=== PATIENT | female | born 1970 | race Caucasian/White ===

== ENCOUNTER 2017-06-23 10:43 | Emergency (ER) | payer BC ==
[2017-06-23] MEDS ORDERED: LISINOPRIL 10 MG TAB PO STA (11:42)
[2017-06-23] MEDS ORDERED: hydrALAZINE HCL 20 MG/ML 1 ML VIAL IM STA (12:31)
--- NOTE | 2017-06-23 12:31 | ED ---
General Adult HPI - General Chief complaint: Extremity Injury, Lower Stated complaint: fall Time Seen by Provider: 06/23/17 11:04 Source: patient Mode of arrival: ambulatory Limitations: no limitations - History of Present Illness Initial comments: She injured her right foot" a few weeks ago him pain is still there now she is concerned about the pain also blood pressures fine she was used to be on medication lisinopril plus hydrochlorothiazide for that and patient was doing well she discontinued the medication blood pressure on arrival was quite high at greater than 180 systolic and then it went over the 190 systolic. She took some Motrin for the foot pain this morning she do not want any other medications for At this point and she denies any headaches no blurred vision no chest pain no shortness of breath no confusion no symptoms of TIA or CVA or - Related Data Home Medications Medication Instructions Recorded Confirmed Frovatriptan Succinate [Frova] 2.5 mg PO BID PRN 08/03/16 06/23/17 DULoxetine HCL [Cymbalta] 60 mg PO DAILY 06/23/17 06/23/17 L.acidoph,Paracasei, B.lactis 1 cap PO DAILY 06/23/17 06/23/17 [Probiotic] Multivitamins, Thera [Multivitamin 1 tab PO DAILY 06/23/17 06/23/17 (formulary)] Previous Rx's Medication Instructions Recorded Lisinopril-Hctz 10-12.5 mg 1 tab PO DAILY #30 tab 06/23/17 [Zestoretic 10-12.5] Allergies Allergy/AdvReac Type Severity Reaction Status Date / Time No Known Allergies Allergy Verified 06/23/17 11:28 Review of Systems ROS Statement: Those systems with pertinent positive or pertinent negative responses have been documented in the HPI. ROS Other: All systems not noted in ROS Statement are negative. Past Medical History Past Medical History: Hypertension, Osteoarthritis (OA) Additional Past Medical History / Comment(s): migraines History of Any Multi-Drug Resistant Organisms: None Reported Past Surgical History: Cholecystectomy, Orthopedic Surgery, Tubal Ligation Past Psychological History: No Psychological Hx Reported Smoking Status: Never smoker Past Alcohol Use History: Occasional Past Drug Use History: None Reported General Exam - General Exam Comments Initial Comments: General: The patient is awake and alert, in no distress, and does not appear acutely ill. Skin: Skin is warm and dry and no rashes or lesions are noted. Eye: Pupils are equal, round and reactive to light, extra-ocular movements are intact; there is normal conjunctiva bilaterally. Ears, nose, mouth and throat: There are moist mucous membranes and no oral lesions. Neck: The neck is supple, there is no tenderness or JVD. Cardiovascular: There is a regular rate and rhythm. No murmur, rub or gallop is appreciated. Respiratory: To auscultation bilateral, no wheezing no rhonchi no distress respiratory jaquez noticed Gastrointestinal: Soft, non-distended, non-tender abdomen without masses or organomegaly noted. There is no rebound or guarding present. Bowel sounds are unremarkable. Back: There is no tenderness to palpation in the midline. There is no obvious deformity. Musculoskeletal: She is tender at the distal tip of the fibula and inferior to the lateral malleolus, noticed some swelling as well she slightly tender over the proximal fifth metatarsal as well. Range of motion is within normal range no neurovascular compromise noticed Neurological: CN II-XII intact, Cranial nerves III through XII are intact. There are no obvious motor or sensory deficits. Coordination appears grossly intact. Speech is normal. Psychiatric: Cooperative, appropriate mood & affect, normal judgment. Limitations: no limitations Course Vital Signs 06/23/17 06/23/17 06/23/17 10:54 11:35 12:19 Temperature 100.0 F H Pulse Rate 105 H 90 94 Respiratory 18 17 18 Rate Blood Pressure 199/109 189/124 193/110 O2 Sat by Pulse 100 99 100 Oximetry 06/23/17 12:53 Temperature Pulse Rate 94 Respiratory 18 Rate Blood Pressure 187/116 O2 Sat by Pulse 100 Oximetry Her blood pressure was continuously monitored for over an hour unfortunately: Preet initially we gave her lisinopril which was all medication was not quite effective than we have and hydralazine 20 mg intramuscular warm continue to monitor her still her blood pressures normalized She was reviewed, fracture looks normal and she has ongoing pain for about a month now she probably will need a bone scan as outpatient for her family doctor to make sure the dermis any stress fracture or MRI to rule out any soft tissue injury like ligamental injury, this was discussed with the patient she presented. And she was advised to monitor her blood pressure once daily since her blood pressure systolic was almost 100 and ER and see her family doctor with a blood pressure log For days. I will give her prescription for lisinopril this point she was on prior to discontinuing her months Disposition Clinical Impression: Hypertension, Foot contusion Disposition: HOME SELF-CARE Instructions: Foot Contusion (ED) Prescriptions: Lisinopril-Hctz 10-12.5 mg [Zestoretic 10-12.5] 1 tab PO DAILY #30 tab Referrals: Guadalupe Caceres MD [Primary Care Provider] - 1-2 days
--- NOTE | 2017-06-23 12:53 | XR ---
EXAMINATION TYPE: XR foot complete RT DATE OF EXAM: 06/23/2017 COMPARISON: NONE HISTORY: Pain TECHNIQUE: Three views are submitted. FINDINGS: The osseous structures are intact and nephropathy first MTP joint. Tiny plantar calcaneal spur. Ther e is no acute fracture or dislocation. IMPRESSION: 1. No acute fracture or dislocation. If symptoms persist, follow-up exam in 7 to 10 days could be ob tained.
[2017-06-23 13:06] VITALS: BP 179/100; PULSE 88; RESP 16
[2017-06-23 13:12] VITALS: TEMP 97.9
== END 2017-06-23 13:12 | disposition home or self-care (01) ==
LOC: EC 10:43
DX: S90.31XA Contusion of right foot, initial encounter (principal); I10 Essential (primary) hypertension; Z79.899 Other long term (current) drug therapy; W19.XXXA Unspecified fall, initial encounter
CPT/HCPCS: 73630; 99283; 96372; J0360

== ENCOUNTER → 2017-08-14 | Outpatient (CLI) | payer BC ==
[2017-08-14 08:10] LABS: Cholesterol 210 mg/dL (<200); HDL Cholesterol 64 mg/dL (40-60)
== END | disposition home or self-care (01) ==
LOC: LABWHC1 07:26
PROVIDERS: ATTEND Internal Medicine
DX: Z13.220 Encounter for screening for lipoid disorders (principal)
CPT/HCPCS: 36415; 80061

== ENCOUNTER 2018-11-02 08:53 | Emergency (ER) | payer BC ==
[2018-11-02] MEDS ORDERED: SODIUM CHLORIDE 0.9% 500 ML 500 ML IV STA (09:24)
[2018-11-02] MEDS ORDERED: KETOROLAC 60 MG/2 ML VIAL IVP STA (09:24)
--- NOTE | 2018-11-02 09:28 | ED ---
General Adult HPI - General Chief complaint: Arrhythmia/Palpitations Stated complaint: Palpitations Time Seen by Provider: 11/02/18 08:55 Source: patient, RN notes reviewed Mode of arrival: wheelchair Limitations: no limitations - History of Present Illness Initial comments: This is a 48-year-old female who presents to the emergency department complaining of left sided sharp chest pain which is reproducible just above her left breast. Patient states this started last night. Patient also states felt that she's had palpitations but she believes that's her anxiety because she's had this before. Patient states the chest pain is reproducible. Patient states over the weekend she had a migraine was vomiting and could've hurt her chest at that time but doesn't recall any specific event that caused her the pain. Patient states she has no pressure sensation. Patient denies being short of breath or having difficulty breathing. Patient is a diaphoretic episode. Patient denies any nausea or vomiting. Patient denies abdominal pain patient denies any calf tenderness or leg swelling. Patient states she has had recent some right-sided rib pain but that is very subtle and not reproducible palpation. Patient denies any recent fever chills or cough. Patient denies any smoking. Patient states recently she's been diagnosed with rheumatoid arthritis. Patient states that this pain is typical of her rheumatoid arthritis and could've been exacerbated by her vomiting this . - Related Data Home Medications Medication Instructions Recorded Confirmed ALPRAZolam [Xanax] 0.25 mg PO BID PRN 11/02/18 11/02/18 ALPRAZolam [Xanax] 0.5 mg PO HS PRN 11/02/18 11/02/18 Etanercept [Enbrel] 50 mg SQ TU 11/02/18 11/02/18 Gabapentin [Neurontin] 200 mg PO TID 11/02/18 11/02/18 Suvorexant [Belsomra] 20 mg PO HS PRN 11/02/18 11/02/18 Previous Rx's Medication Instructions Recorded Lisinopril [Prinivil] 10 mg PO DAILY #10 tab 11/02/18 Allergies Allergy/AdvReac Type Severity Reaction Status Date / Time No Known Allergies Allergy Verified 11/02/18 09:16 Review of Systems ROS Statement: Those systems with pertinent positive or pertinent negative responses have been documented in the HPI. ROS Other: All systems not noted in ROS Statement are negative. Past Medical History Past Medical History: Hypertension, Osteoarthritis (OA) Additional Past Medical History / Comment(s): migraines History of Any Multi-Drug Resistant Organisms: None Reported Past Surgical History: Cholecystectomy, Orthopedic Surgery, Tubal Ligation Additional Past Surgical History / Comment(s): carpel tunnel Past Psychological History: Anxiety Smoking Status: Never smoker Past Alcohol Use History: Occasional Past Drug Use History: None Reported General Exam - General Exam Comments Initial Comments: GENERAL: Patient is well-developed and well-nourished. Patient is nontoxic and well- hydrated and is in mild distress. ENT: Neck is soft and supple. No significant lymphadenopathy is noted. Oropharynx is clear. Moist mucous membranes. Neck has full range of motion without eliciting any pain. EYES: The sclera were anicteric and conjunctiva were pink and moist. Extraocular movements were intact and pupils were equal round and reactive to light. Eyelids were unremarkable. PULMONARY: Unlabored respirations. Good breath sounds bilaterally. No audible rales rhonchi or wheezing was noted. CARDIOVASCULAR: There is a regular rate and rhythm without any murmurs gallops or rubs. Patient 's chest pain is reproducible on palpation just above the left breast. No masses or rashes are noted. There is no erythematous area. ABDOMEN: Soft and nontender with normal bowel sounds. No palpable organomegaly was noted. There is no palpable pulsatile mass. SKIN: Skin is clear with no lesions or rashes and otherwise unremarkable. NEUROLOGIC: Patient is alert and oriented x3. Cranial nerves II through XII are grossly intact. Motor and sensory are also intact. Normal speech, volume and content. Symmetrical smile. MUSCULOSKELETAL: Normal extremities with adequate strength and full range of motion. No lower extremity swelling or edema. No calf tenderness. LYMPHATICS: No significant lymphadenopathy is noted PSYCHIATRIC: Normal psychiatric evaluation. Limitations: no limitations Course Vital Signs 11/02/18 11/02/18 11/02/18 08:56 09:55 11:10 Temperature 98.1 F Pulse Rate 84 78 76 Respiratory 18 18 16 Rate Blood Pressure 174/116 174/111 173/106 O2 Sat by Pulse 100 98 99 Oximetry 11/02/18 11/02/18 11/02/18 11:12 11:45 12:33 Temperature 97.9 F Pulse Rate 82 86 Respiratory 18 16 Rate Blood Pressure 175/116 166/107 156/99 O2 Sat by Pulse 99 100 Oximetry 11/02/18 13:09 Temperature Pulse Rate 73 Respiratory 16 Rate Blood Pressure 155/97 O2 Sat by Pulse 100 Oximetry Medical Decision Making - Medical Decision Making EKG shows normal sinus rhythm at 82 bpm DC interval is on a 32 QRS is 96 Q-T intervals 416 QTC is 486. Patient's EKG shows no ST segment elevation or depression or T wave abnormalities are noted. Given the patient Vasotec 1.25. Patient's blood pressure was elevated while in the emergency department. - Lab Data Result diagrams: 11/02/18 09:44 11/02/18 09:44 Lab Results 11/02/18 11/02/18 11/02/18 Range/Units 09:44 09:44 09:44 WBC 10.7 H (3.8-10.6) k/uL RBC 4.68 (3.80-5.40) m/uL Hgb 13.6 (11.4-16.0) gm/dL Hct 41.6 (34.0-46.0) % MCV 88.9 (80.0-100.0) fL MCH 29.0 (25.0-35.0) pg MCHC 32.6 (31.0-37.0) g/dL RDW 13.1 (11.5-15.5) % Plt Count 364 (150-450) k/uL Neutrophils % 82 % Lymphocytes % 11 % Monocytes % 4 % Eosinophils % 1 % Basophils % 1 % Neutrophils # 8.8 H (1.3-7.7) k/uL Lymphocytes # 1.2 (1.0-4.8) k/uL Monocytes # 0.4 (0-1.0) k/uL Eosinophils # 0.1 (0-0.7) k/uL Basophils # 0.1 (0-0.2) k/uL PT (9.0-12.0) sec INR (<1.2) APTT (22.0-30.0) sec D-Dimer (<0.60) mg/L FEU Sodium 140 (137-145) mmol/L Potassium 4.4 (3.5-5.1) mmol/L Chloride 105 (98-107) mmol/L Carbon Dioxide 26 (22-30) mmol/L Anion Gap 9 mmol/L BUN 10 (7-17) mg/dL Creatinine 0.67 (0.52-1.04) mg/dL Est GFR (CKD-EPI)AfAm >90 (>60 ml/min/1.73 sqM) Est GFR (CKD-EPI)NonAf >90 (>60 ml/min/1.73 sqM) Glucose 96 (74-99) mg/dL Calcium 10.5 H (8.4-10.2) mg/dL Magnesium 1.8 (1.6-2.3) mg/dL Total Bilirubin 0.6 (0.2-1.3) mg/dL AST 22 (14-36) U/L ALT 40 (9-52) U/L Alkaline Phosphatase 78 (38-126) U/L Total Creatine Kinase 39 (30-135) U/L CK-MB (CK-2) <0.2 (0.0-2.4) ng/mL CK-MB (CK-2) Rel Index Troponin I <0.012 (0.000-0.034) ng/mL Total Protein 7.7 (6.3-8.2) g/dL Albumin 4.5 (3.5-5.0) g/dL 11/02/18 Range/Units 09:44 WBC (3.8-10.6) k/uL RBC (3.80-5.40) m/uL Hgb (11.4-16.0) gm/dL Hct (34.0-46.0) % MCV (80.0-100.0) fL MCH (25.0-35.0) pg MCHC (31.0-37.0) g/dL RDW (11.5-15.5) % Plt Count (150-450) k/uL Neutrophils % % Lymphocytes % % Monocytes % % Eosinophils % % Basophils % % Neutrophils # (1.3-7.7) k/uL Lymphocytes # (1.0-4.8) k/uL Monocytes # (0-1.0) k/uL Eosinophils # (0-0.7) k/uL Basophils # (0-0.2) k/uL PT 10.7 (9.0-12.0) sec INR 1.0 (<1.2) APTT 25.9 (22.0-30.0) sec D-Dimer 0.28 (<0.60) mg/L FEU Sodium (137-145) mmol/L Potassium (3.5-5.1) mmol/L Chloride (98-107) mmol/L Carbon Dioxide (22-30) mmol/L Anion Gap mmol/L BUN (7-17) mg/dL Creatinine (0.52-1.04) mg/dL Est GFR (CKD-EPI)AfAm (>60 ml/min/1.73 sqM) Est GFR (CKD-EPI)NonAf (>60 ml/min/1.73 sqM) Glucose (74-99) mg/dL Calcium (8.4-10.2) mg/dL Magnesium (1.6-2.3) mg/dL Total Bilirubin (0.2-1.3) mg/dL AST (14-36) U/L ALT (9-52) U/L Alkaline Phosphatase (38-126) U/L Total Creatine Kinase (30-135) U/L CK-MB (CK-2) (0.0-2.4) ng/mL CK-MB (CK-2) Rel Index Troponin I (0.000-0.034) ng/mL Total Protein (6.3-8.2) g/dL Albumin (3.5-5.0) g/dL Disposition Clinical Impression: High blood pressure, Palpitations, Chest wall pain Disposition: HOME SELF-CARE Instructions: Hypertension (ED) Prescriptions: Lisinopril [Prinivil] 10 mg PO DAILY #10 tab Is patient prescribed a controlled substance at d/c from ED?: No Referrals: Guadalupe Caceres MD [Primary Care Provider] - 1-2 days
[2018-11-02] MEDS ORDERED: ALPRAZolam 0.25 MG TAB PO STA (09:57)
--- NOTE | 2018-11-02 10:15 | XR ---
EXAMINATION TYPE: XR chest 2V DATE OF EXAM: 11/02/2018 COMPARISON: None HISTORY: 48-year-old female chest pain, dysrhythmia TECHNIQUE: PA and lateral views FINDINGS: The cardiomediastinal silhouette, aorta, and pulmonary vasculature are within normal limits. Lungs an d pleural spaces are clear. IMPRESSION: No acute cardiopulmonary process.
[2018-11-02 10:18] LABS: Basophils # (A) 0.1 k/uL (0-0.2); Basophils % (A) 1 %; Eosinophils # (A) 0.1 k/uL (0-0.7); Eosinophils % (A) 1 %; HCT 41.6 % (34.0-46.0); HGB 13.6 gm/dL (11.4-16.0); Lymphocytes # (A) 1.2 k/uL (1.0-4.8); Lymphocytes % (A) 11 %; MCHC 32.6 g/dL (31.0-37.0); MCV 88.9 fL (80.0-100.0); Mean Platelet Volume 6.7; Monocytes # (A) 0.4 k/uL (0-1.0); Monocytes % (A) 4 %; Neutrophils # (A) 8.8 k/uL (1.3-7.7); Neutrophils % (A) 82 %; Platelet Count 364 k/uL (150-450); RBC 4.68 m/uL (3.80-5.40); RDW 13.1 % (11.5-15.5); WBC 10.7 k/uL (3.8-10.6)
[2018-11-02 10:33] LABS: ALT 40 U/L (9-52); AST 22 U/L (14-36); Albumin 4.5 g/dL (3.5-5.0); Alkaline Phosphatase 78 U/L (38-126); Anion Gap 9 mmol/L; Blood Urea Nitrogen 10 mg/dL (7-17); Calcium 10.5 mg/dL (8.4-10.2); Carbon Dioxide 26 mmol/L (22-30); Chloride 105 mmol/L (98-107); Glucose 96 mg/dL (74-99); Magnesium 1.8 mg/dL (1.6-2.3); Potassium 4.4 mmol/L (3.5-5.1); Sodium 140 mmol/L (137-145); Total Bilirubin 0.6 mg/dL (0.2-1.3); Total Protein 7.7 g/dL (6.3-8.2)
[2018-11-02 10:44] LABS: D-Dimer 0.28 mg/L FEU (<0.60); Partial Thromboplastin Time 25.9 sec (22.0-30.0); Prothrombin Time 10.7 sec (9.0-12.0)
[2018-11-02 10:45] LABS: Creatine Kinase 39 U/L (30-135)
[2018-11-02 10:58] LABS: Creatine Kinase MB <0.2 ng/mL (0.0-2.4); Troponin I <0.012 ng/mL (0.000-0.034)
[2018-11-02 11:13] VITALS: TEMP 97.9
[2018-11-02] MEDS ORDERED: ENALAPRILAT 1.25 MG/ML 1 ML VIAL IVP STA (11:14)
[2018-11-02] MEDS ORDERED: MORPHINE SULFATE 2 MG/ML SYRINGE IVP STA ×2 (11:43→12:14)
[2018-11-02 12:34] VITALS: RESP 16
[2018-11-02 13:11] VITALS: BP 155/97; PULSE 73
== END 2018-11-02 13:29 | disposition home or self-care (01) ==
LOC: EC 08:53
DX: R07.89 Other chest pain (principal); R00.2 Palpitations; I10 Essential (primary) hypertension; M06.9 Rheumatoid arthritis, unspecified; M19.90 Unspecified osteoarthritis, unspecified site; Z79.899 Other long term (current) drug therapy
CPT/HCPCS: 36415; 93005; 85379; 80053; 82550; 82553; 83735; 84484; 85025; 85610; 85730; 71046; 99285; 96374; 96375 ×2; 96376; 96361; J1885; J2270

== ENCOUNTER → 2019-10-02 | Outpatient (CLI) | payer BC ==
[2019-10-02 10:55] LABS: HCT 38.4 % (34.0-46.0); HGB 12.7 gm/dL (11.4-16.0); MCH 30.8 pg (25.0-35.0); MCHC 33.2 g/dL (31.0-37.0); MCV 92.8 fL (80.0-100.0); Mean Platelet Volume 6.3; Platelet Count 325 k/uL (150-450); RBC 4.13 m/uL (3.80-5.40); RDW 12.6 % (11.5-15.5); WBC 6.7 k/uL (3.8-10.6)
[2019-10-02 17:30] LABS: African American GFR (CKD) 87.6 (60.0-200.0); Albumin 4.2 g/dL (3.80-4.90); Albumin/Globulin Ratio 1.91 (1.60-3.17); Anion Gap 4.9 mmol/L (4.00-12.00); Calcium 9.4 mg/dL (8.7-10.3); Carbon Dioxide 29.1 mmol/L (21.6-31.8); Chol/HDL Ratio 3.44; Globulin 2.2 g/dL (1.6-3.3); Non-African American GFR(CKD) 75.6 (60.0-200.0); Potassium 4.3 mmol/L (3.5-5.5); Total Bilirubin 0.3 mg/dL (0.2-1.2); Total Protein 6.4 g/dL (6.2-8.2)
== END | disposition home or self-care (01) ==
LOC: LABWHC1 09:51
PROVIDERS: ATTEND Internal Medicine
DX: Z00.01 Encounter for general adult medical examination with abnormal findings (principal); R53.83 Other fatigue
CPT/HCPCS: 36415; 80053; 80061; 84443; 85027

== ENCOUNTER 2020-04-16 07:36 | Inpatient (IN) | payer BC ==
[2020-04-16] MEDS ORDERED: MORPHINE SULFATE 4 MG/ML SYRINGE IV STA ×2 (08:04→09:53)
[2020-04-16] MEDS ORDERED: SODIUM CHLORIDE 0.9% 1,000 ML IV STA (08:04)
--- NOTE | 2020-04-16 08:06 | ED ---
General Adult HPI <Yon Florez - Last Filed: 04/16/20 11:17> - General Source: patient, RN notes reviewed, old records reviewed Mode of arrival: ambulatory Limitations: no limitations <Karlos Rodríguez - Last Filed: 04/16/20 12:00> - General Chief complaint: Urogenital Stated complaint: Fever, nausea, side pain Time Seen by Provider: 04/16/20 07:47 - History of Present Illness Initial comments: 49-year-old female patient past medical history cholecystectomy, tubal ligation press ED for chief complaint of right flank pain, fever, urinary urgency. Patient reports that symptoms started on Friday she gave a urine sample which was reviewed by her primary care provider and had a teleconference at that time patient was diagnosed with pyelonephritis and placed on ciprofloxacin. Patient reports that she has been taking ciprofloxacin 500 mg twice a day. She states the symptoms are not improving. She reports that she continues to have right flank pain, she states that she has been having fever is most recently approximately 6 AM this morning she states that she believes she had a fever of 105F. Denies any upper respiratory symptoms. She denies any other complaints at this time. Systemic: Pt denies fatigue, fever/chills, rash. Pt denies weakness, night sweats, weight loss. Neuro: Pt denies headache, visual disturbances, syncope or pre-syncope. HEENT: Pt denies ocular discharge or irritation, otalgia, rhinorrhea, pharyngitis or notable lymphadenopathy. Cardiopulmonary: Pt denies chest pain, SOB, heart palpitations, dyspnea on exertion. Abdominal/GI: Pt denies v/d. : Denies new onset urinary or bowel incontinence. MSK: Pt denies myalgia, loss of strength or function in extremities. Neuro: Pt denies new onset weakness, paresthesias. (Karlos Rodríguez) - Related Data Home Medications Medication Instructions Recorded Confirmed Etanercept [Enbrel] 50 mg SQ TU 11/02/18 04/16/20 Multivitamins, Thera [Multivitamin 1 tab PO DAILY 04/16/20 04/16/20 (formulary)] Sertraline [Zoloft] 100 mg PO DAILY 04/16/20 04/16/20 Previous Rx's Medication Instructions Recorded Lisinopril [Prinivil] 10 mg PO DAILY #10 tab 11/02/18 Allergies Allergy/AdvReac Type Severity Reaction Status Date / Time No Known Allergies Allergy Verified 04/16/20 11:30 Review of Systems ROS Other: All systems not noted in ROS Statement are negative. <Yon Florez - Last Filed: 04/16/20 11:17> ROS Other: All systems not noted in ROS Statement are negative. <Karlos Rodríguez - Last Filed: 04/16/20 12:00> ROS Statement: Those systems with pertinent positive or pertinent negative responses have been documented in the HPI. Past Medical History Past Medical History: Hypertension, Osteoarthritis (OA), Rheumatoid Arthritis (RA) Additional Past Medical History / Comment(s): migraines History of Any Multi-Drug Resistant Organisms: None Reported Past Surgical History: Cholecystectomy, Orthopedic Surgery, Tubal Ligation Additional Past Surgical History / Comment(s): carpel tunnel, knee - arthro Past Psychological History: Anxiety Smoking Status: Never smoker Past Alcohol Use History: Occasional Past Drug Use History: None Reported <Karlos Rodríguez - Last Filed: 04/16/20 12:00> General Exam Limitations: no limitations <Karlos Rodríguez - Last Filed: 04/16/20 12:00> - General Exam Comments Initial Comments: Constitutional: NAD, AOX3, Pt has pleasant affect. HEENT: NC/AT, trachea midline, neck supple, no lymphadenopathy. Posterior phary nx non erythematous, without exudates. External ears appear normal, without discharge. Mucous membranes moist. Eyes PERRLA, EOM intact. There is no scleral icterus. No pallor noted. Cardiopulmonary: RRR, no murmurs, rubs or gallops, no JVD noted. Lungs CTAB in anterior and posterior mckoy. No peripheral edema. Abdominal exam: Abdomen soft and non-distended. Abdomen non-tender to palpation in all 4 quadrants. Right flank mildly tender to palpation. CVA tenderness is positive. Bowel sounds active in LLQ. No hepatosplenomegaly. No ecchymosis Neuro: CN II-XII grossly intact. No nuchal rigidity. No raccon eyes, no morales sign, no hemotympanum. No cervical spinal tenderness. MSK: No posterior calf tenderness bilaterally, homans sign negative bilaterally. Posterior tibialis and radial pulse +2 bilaterally. Sensation intact in upper and lower extremities. Full active ROM in upper and lower extremities, 5/5 stregnth. (Karlos Rodríguez) Course <GautamYon - Last Filed: 04/16/20 11:17> Vital Signs 04/16/20 04/16/20 07:42 10:26 Temperature 99.6 F 98.9 F Pulse Rate 96 67 Respiratory 18 16 Rate Blood Pressure 149/76 100/51 O2 Sat by Pulse 96 99 Oximetry - Reevaluation(s) Reevaluation #1: 04/16/20 11:17 PEs supervision: I personally evaluate this case patient presents with complaints of urinary symptoms starting 6 days ago with antibiotics started 4 days ago. Patient was on Cipro which ultimately did not cover the E. coli ventricular discovery of the patient's urine. She presents now complains of right-sided flank pain is about [address] results show evidence of obstructive uropathy in the right no definite stone is seen though it is suspected. The case is discussed with Dr. Branch who will be accepting the patient on his s ervice also Dr. Barney who I did discuss case will will be on consult. (Yon Florez) Medical Decision Making - Lab Data Result diagrams: 04/16/20 08:45 04/16/20 08:45 <Yon Florez - Last Filed: 04/16/20 11:17> - Lab Data Result diagrams: 04/16/20 08:45 04/16/20 08:45 <Karlos Rodríguez - Last Filed: 04/16/20 12:00> - Medical Decision Making 49-year-old female patient past medical history cholecystectomy, tubal ligation press ED for chief complaint of right flank pain, fever, urinary urgency. Patient reports that symptoms started on Friday she gave a urine sample which was reviewed by her primary care provider and had a teleconference at that time patient was diagnosed with pyelonephritis and placed on ciprofloxacin. Patient reports that she has been taking ciprofloxacin 500 mg twice a day. She states the symptoms are not improving. She reports that she continues to have right flank pain, she states that she has been having fever is most recently approximately 6 AM this morning she states that she believes she had a fever of 105F. Denies any upper respiratory symptoms. She denies any other complaints at this time. Patient vital signs are stable, afebrile. Physical exam didn't display CVA tenderness right sided. Right flank tender. Laboratory investigations reveal leukocytosis with left shift. Mild transaminitis. UA consistent with urinary tract infection. Urine will be cultured. Previous urine cultures from [facility] did display growth of E. coli from 5 days ago which is susceptible to cephalosporins. CT abdomen and pelvis that di splay acute obstructive uropathy right sided no radiopaque stone, minimal perinephric fat stranding right-sided as well. Degree of intrahepatic and extrahepatic biliary ductal dilationout of proprtion for patient's postcholecystectomy status. Recommend nonemergent MRCP. Patient administered 2 g Rocephin. Bolused 1 L and will be put on maintenance fluids. Case is discussed with Dr. Florez discuss case with on-call urology Dr. Barney will see this patient in consult. Did not recommend any further investigation. Patient will be admitted to Dr. Branch for further evaluation. (Karlos Rodríguez) - Lab Data Lab Results 04/16/20 04/16/20 04/16/20 Range/Units 08:45 08:45 08:45 WBC 16.8 H (3.8-10.6) k/uL RBC 3.75 L (3.80-5.40) m/uL Hgb 11.0 L (11.4-16.0) gm/dL Hct 33.7 L (34.0-46.0) % MCV 89.9 (80.0-100.0) fL MCH 29.2 (25.0-35.0) pg MCHC 32.5 (31.0-37.0) g/dL RDW 12.4 (11.5-15.5) % Plt Count 288 (150-450) k/uL Neutrophils % 84 % Lymphocytes % 6 % Monocytes % 7 % Eosinophils % 1 % Basophils % 0 % Neutrophils # 14.0 H (1.3-7.7) k/uL Lymphocytes # 1.0 (1.0-4.8) k/uL Monocytes # 1.2 H (0-1.0) k/uL Eosinophils # 0.1 (0-0.7) k/uL Basophils # 0.1 (0-0.2) k/uL Sodium (137-145) mmol/L Potassium (3.5-5.1) mmol/L Chloride (98-107) mmol/L Carbon Dioxide (22-30) mmol/L Anion Gap mmol/L BUN (7-17) mg/dL Creatinine (0.52-1.04) mg/dL Est GFR (CKD-EPI)AfAm (>60 ml/min/1.73 sqM) Est GFR (CKD-EPI)NonAf (>60 ml/min/1.73 sqM) Glucose (74-99) mg/dL Plasma Lactic Acid Vj (0.7-2.0) mmol/L Calcium (8.4-10.2) mg/dL Total Bilirubin (0.2-1.3) mg/dL AST (14-36) U/L ALT (4-34) U/L Alkaline Phosphatase (38-126) U/L Total Protein (6.3-8.2) g/dL Albumin (3.5-5.0) g/dL Lipase (23-300) U/L Urine Color Yellow Urine Appearance Cloudy H (Clear) Urine pH 6.0 (5.0-8.0) Ur Specific [place] 1.020 (1.001-1.035) Urine Protein 1+ H (Negative) Urine Glucose (UA) Negative (Negative) Urine Ketones Negative (Negative) Urine Blood Negative (Negative) Urine Nitrite Negative (Negative) Urine Bilirubin Negative (Negative) Urine Urobilinogen <2.0 (<2.0) mg/dL Ur Leukocyte Esterase Large H (Negative) Urine RBC 4 (0-5) /hpf Urine WBC 115 H (0-5) /hpf Ur Squamous Epith Cells <1 (0-4) /hpf Urine Bacteria Rare H (None) /hpf Hyaline Casts 17 H (0-2) /lpf Urine Mucus Rare H (None) /hpf Urine HCG, Qual Not Detected (Not Detectd) 04/16/20 04/16/20 Range/Units 08:45 08:45 WBC (3.8-10.6) k/uL RBC (3.80-5.40) m/uL Hgb (11.4-16.0) gm/dL Hct (34.0-46.0) % MCV (80.0-100.0) fL MCH (25.0-35.0) pg MCHC (31.0-37.0) g/dL RDW (11.5-15.5) % Plt Count (150-450) k/uL Neutrophils % % Lymphocytes % % Monocytes % % Eosinophils % % Basophils % % Neutrophils # (1.3-7.7) k/uL Lymphocytes # (1.0-4.8) k/uL Monocytes # (0-1.0) k/uL Eosinophils # (0-0.7) k/uL Basophils # (0-0.2) k/uL Sodium 134 L (137-145) mmol/L Potassium 3.5 (3.5-5.1) mmol/L Chloride 101 (98-107) mmol/L Carbon Dioxide 22 (22-30) mmol/L Anion Gap 11 mmol/L BUN 9 (7-17) mg/dL Creatinine 0.91 (0.52-1.04) mg/dL Est GFR (CKD-EPI)AfAm 86 (>60 ml/min/1.73 sqM) Est GFR (CKD-EPI)NonAf 75 (>60 ml/min/1.73 sqM) Glucose 105 H (74-99) mg/dL Plasma Lactic Acid Vj 1.0 (0.7-2.0) mmol/L Calcium 9.2 (8.4-10.2) mg/dL Total Bilirubin 0.4 (0.2-1.3) mg/dL AST 61 H (14-36) U/L ALT 86 H (4-34) U/L Alkaline Phosphatase 126 (38-126) U/L Total Protein 6.7 (6.3-8.2) g/dL Albumin 3.7 (3.5-5.0) g/dL Lipase 24 (23-300) U/L Urine Color Urine Appearance (Clear) Urine pH (5.0-8.0) Ur Specific [place] (1.001-1.035) Urine Protein (Negative) Urine Glucose (UA) (Negative) Urine Ketones (Negative) Urine Blood (Negative) Urine Nitrite (Negative) Urine Bilirubin (Negative) Urine Urobilinogen (<2.0) mg/dL Ur Leukocyte Esterase (Negative) Urine RBC (0-5) /hpf Urine WBC (0-5) /hpf Ur Squamous Epith Cells (0-4) /hpf Urine Bacteria (None) /hpf Hyaline Casts (0-2) /lpf Urine Mucus (None) /hpf Urine HCG, Qual (Not Detectd) Disposition <Yon Florez - Last Filed: 04/16/20 11:17> Is patient prescribed a controlled substance at d/c from ED?: No <Karlos Rodríguez - Last Filed: 04/16/20 12:00> Clinical Impression: Pyelonephritis Narrative: Possible non-radiopaque right-sided ureteral calculi or stricture (Karlos Rodríguez) Disposition: ADMITTED IP TO THIS HOSP Condition: Serious Referrals: Guadalupe Caceres MD [Primary Care Provider] - 1-2 days
[2020-04-16 09:10] LABS: Albumin 3.7 g/dL (3.5-5.0); Calcium 9.2 mg/dL (8.4-10.2); Potassium 3.5 mmol/L (3.5-5.1); Total Bilirubin 0.4 mg/dL (0.2-1.3); Total Protein 6.7 g/dL (6.3-8.2)
[2020-04-16 09:12] LABS: Basophils # (A) 0.1 k/uL (0-0.2); Basophils % (A) 0 %; Eosinophils # (A) 0.1 k/uL (0-0.7); Eosinophils % (A) 1 %; HCT 33.7 % (34.0-46.0); Lymphocytes % (A) 6 %; MCH 29.2 pg (25.0-35.0); MCHC 32.5 g/dL (31.0-37.0); MCV 89.9 fL (80.0-100.0); Mean Platelet Volume 7.6; Monocytes # (A) 1.2 k/uL (0-1.0); Monocytes % (A) 7 %; Neutrophils % (A) 84 %; Platelet Count 288 k/uL (150-450); RBC 3.75 m/uL (3.80-5.40); RDW 12.4 % (11.5-15.5); WBC 16.8 k/uL (3.8-10.6)
[2020-04-16 09:14] LABS: Appearance,Urine Cloudy (Clear); Bacteria,Urine Rare /hpf; Bilirubin,Urine Negative (Negative); Blood,Urine Negative (Negative); Color,Urine Yellow; Glucose,Urine (UA) Negative (Negative); Hyaline Casts,Urine 17 /lpf (0-2); Ketones,Urine Negative (Negative); Leukocyte Esterase,Urine Large (Negative); Mucus,Urine Rare /hpf; Nitrite,Urine Negative (Negative); Protein,Urine 1+ (Negative); RBC,Urine 4 /hpf (0-5); Squamous Epithelial Cell,Urine <1 /hpf (0-4); Urobilinogen,Urine <2.0 mg/dL (<2.0); WBC,Urine 115 /hpf (0-5)
--- NOTE | 2020-04-16 10:25 | CT ---
EXAMINATION TYPE: CT abdomen pelvis w con DATE OF EXAM: 04/16/2020 HISTORY: Rt flank pain, UTI, pyelonephritis CT DLP: 1532.6mGycm Automated Exposure Control for Dose Reduction was Utilized. CONTRAST: CT scan of the abdomen and pelvis is performed with IV Contrast, patient injected with 100 mL of Isov ue 300. COMPARISON: None. FINDINGS: LUNG BASES: Linear pleural parenchymal scarring at the left lung base and few areas of focal minimal pleural thickening dependently versus atelectatic change. LIVER/GB: Probable focal fatty infiltration near the fissure for the falciform ligament on image 21, a typical location for focal fatty infiltration. Mild intrahepatic biliary ductal dilatation status p ost cholecystectomy. Marked extrahepatic biliary duct dilatation with the common bile duct measuring up to 1.4 cm. PANCREAS: No significant abnormality is seen. SPLEEN: No splenomegaly. Splenule is seen adjacent to the [place] spleen. ADRENALS: No nodules or thickening. KIDNEYS: There is decreased enhancement of the right kidney comparison to the left with mild surround ing inflammatory fat stranding. Acute obstructive uropathy suspected as there is moderate right hydro ureteronephrosis with severe enlargement of the right renal pelvis. The ureter is dilated in its prox imal and mid portions and appears decompressed distally as it crosses over the right external iliac a rtery and vein. It is followed distally and its diminutive caliber to the right ureterovesicular junc tion without radiopaque calculus seen. Urinary bladder is incompletely distended. No striated nephrog yogesh suggests pyelonephritis radiographically at this time. BOWEL: Moderate degree colonic fecal stasis and redundancy of the sigmoid colon. No evidence of bowel obstruction. LYMPH NODES: No greater than 1cm abdominal or pelvic lymph nodes are appreciated. OSSEOUS STRUCTURES: Probable hypoplastic 12th ribs and transitional vertebrae of the lumbosacral junc tion. Mild multilevel degenerative change of the spine with lucency of the right L4 facet, likely deg enerative. IMPRESSION: 1. Acute obstructive uropathy on the right is suspected as there is moderate right hydroureteronephro sis and severe dilatation of the right renal sinus. The right ureter is dilated in its proximal and m idportion however decompressed distally without CT evidence for a radiopaque obstructing calculus. Di minished enhancement of the right containing comparison the left and minimal perinephric fat strandin g support obstructive uropathy without striated nephrogram to suggest acute pyelonephritis on CT. 2. Degree of intrahepatic and extra hepatic biliary ductal dilatation out of proportion for this parag ent's postcholecystectomy status. Correlation with serum bilirubin levels and alkaline phosphatase re commended as well as nonemergent follow-up MRCP.
[2020-04-16] MEDS ORDERED: ACETAMINOPHEN TAB 325 MG TAB PO PRN (11:56)
[2020-04-16] MEDS ORDERED: NALOXONE 0.4 MG/ML 1 ML VIAL IV PRN (11:56)
--- NOTE | 2020-04-16 12:40 | P.GSCN ---
History of Present Illness Consult date: 04/16/20 History of present illness: 49-year-old female recently seen by for a urinary tract infection. She was placed on Cipro but urine culture shows that the bacteria was not sensitive to the Cipro. She came in the emergency room with a temperature 105 this morning chills and fever. Her white count of 105. A computed tomography scan of the abdomen looking for stone showed a right-sided hydronephrosis without obvious cause. She has no surgical cause her previous urologic cause for this hydronephrosis. She is still somewhat uncomfortable with shaking chills. Urologically she has had a previous infection in the last year or so. She is on Enbrel for rheumatoid arthritis. Review of Systems All systems: negative - Constitutional Denies fever, Denies weight loss - EENT Eyes: denies blurred vision Ears, nose, mouth and throat: Denies dysphagia - Cardiovascular Denies chest pain, Denies shortness of breath - Respiratory Denies cough, Denies 7 - Gastrointestinal Reports as per HPI - Genitourinary Genitourinary: Denies dysuria, Denies hematuria - Integumentary Denies rash, Denies unusual bruising - Neurological Denies headaches, Denies syncope - Hematologic/Lymphatic Denies easy bleeding, Denies easy bruising Past Medical History Past Medical History: Hypertension, Osteoarthritis (OA), Rheumatoid Arthritis (RA) Additional Past Medical History / Comment(s): migraines History of Any Multi-Drug Resistant Organisms: None Reported Past Surgical History: Cholecystectomy, Orthopedic Surgery, Tubal Ligation Additional Past Surgical History / Comment(s): carpel tunnel, knee - arthro Past Psychological History: Anxiety Smoking Status: Never smoker Past Alcohol Use History: Occasional Past Drug Use History: None Reported Medications and Allergies Home Medications Medication Instructions Recorded Confirmed Type Etanercept [Enbrel] 50 mg SQ TU 11/02/18 04/16/20 History Lisinopril [Prinivil] 10 mg PO DAILY #10 tab 11/02/18 04/16/20 Rx Multivitamins, Thera [Multivitamin 1 tab PO DAILY 04/16/20 04/16/20 History (formulary)] Sertraline [Zoloft] 100 mg PO DAILY 04/16/20 04/16/20 History Allergies Allergy/AdvReac Type Severity Reaction Status Date / Time No Known Allergies Allergy Verified 04/16/20 11:30 Surgical - Exam Vital Signs Temp Pulse Resp BP Pulse Ox 99.6 F 96 18 149/76 96 04/16/20 07:42 04/16/20 07:42 04/16/20 07:42 04/16/20 07:42 04/16/20 07:42 - General well developed, well nourished, moderate distress - Eyes PERRL - ENT no hearing loss - Neck trachea midline - Respiratory normal expansion, normal respiratory effort - Cardiovascular Rhythm: regular - Abdomen Abdomen: tender - Integumentary no rash, no growths - Neurologic normal coordination, normal sensation - Musculoskeletal normal posture - Psychiatric oriented to time, oriented to person, oriented to place, speech is normal, henrique ry intact Results - Labs 04/16/20 08:45 04/16/20 08:45 Abnormal Lab Results - Last 24 Hours (Table) 04/16/20 04/16/20 04/16/20 Range/Units 08:45 08:45 08:45 WBC 16.8 H (3.8-10.6) k/uL RBC 3.75 L (3.80-5.40) m/uL Hgb 11.0 L (11.4-16.0) gm/dL Hct 33.7 L (34.0-46.0) % Neutrophils # 14.0 H (1.3-7.7) k/uL Monocytes # 1.2 H (0-1.0) k/uL Sodium 134 L (137-145) mmol/L Glucose 105 H (74-99) mg/dL AST 61 H (14-36) U/L ALT 86 H (4-34) U/L Urine Appearance Cloudy H (Clear) Urine Protein 1+ H (Negative) Ur Leukocyte Esterase Large H (Negative) Urine WBC 115 H (0-5) /hpf Urine Bacteria Rare H (None) /hpf Hyaline Casts 17 H (0-2) /lpf Urine Mucus Rare H (None) /hpf Diabetes panel 04/16/20 Range/Units 08:45 Sodium 134 L (137-145) mmol/L Potassium 3.5 (3.5-5.1) mmol/L Chloride 101 (98-107) mmol/L Carbon Dioxide 22 (22-30) mmol/L BUN 9 (7-17) mg/dL Creatinine 0.91 (0.52-1.04) mg/dL Glucose 105 H (74-99) mg/dL Calcium 9.2 (8.4-10.2) mg/dL AST 61 H (14-36) U/L ALT 86 H (4-34) U/L Alkaline Phosphatase 126 (38-126) U/L Total Protein 6.7 (6.3-8.2) g/dL Albumin 3.7 (3.5-5.0) g/dL Calcium panel 04/16/20 Range/Units 08:45 Calcium 9.2 (8.4-10.2) mg/dL Albumin 3.7 (3.5-5.0) g/dL Pituitary panel 04/16/20 Range/Units 08:45 Sodium 134 L (137-145) mmol/L Potassium 3.5 (3.5-5.1) mmol/L Chloride 101 (98-107) mmol/L Carbon Dioxide 22 (22-30) mmol/L BUN 9 (7-17) mg/dL Creatinine 0.91 (0.52-1.04) mg/dL Glucose 105 H (74-99) mg/dL Calcium 9.2 (8.4-10.2) mg/dL Adrenal panel 04/16/20 Range/Units 08:45 Sodium 134 L (137-145) mmol/L Potassium 3.5 (3.5-5.1) mmol/L Chloride 101 (98-107) mmol/L Carbon Dioxide 22 (22-30) mmol/L BUN 9 (7-17) mg/dL Creatinine 0.91 (0.52-1.04) mg/dL Glucose 105 H (74-99) mg/dL Calcium 9.2 (8.4-10.2) mg/dL Total Bilirubin 0.4 (0.2-1.3) mg/dL AST 61 H (14-36) U/L ALT 86 H (4-34) U/L Alkaline Phosphatase 126 (38-126) U/L Total Protein 6.7 (6.3-8.2) g/dL Albumin 3.7 (3.5-5.0) g/dL - Imaging CT scan - abdomen: report reviewed, image reviewed CT scan - pelvis: report reviewed, image reviewed Assessment and Plan Assessment: Impression: Urinary tract infection with sepsis, right sided pyelonephrosis. Recommendations: Given the hydronephrosis, the elevated temperature and elevated white count he thinks she had benefit from a stent that would accelerate healing of this hydronephrosis and urinary tract infection with sepsis. S ubsequently done later this afternoon. This has been discussed with the patient.
[2020-04-16] MEDS ORDERED: TEMAZEPAM 15 MG CAP PO PRN (12:56)
[2020-04-16] MEDS ORDERED: HYDROcodone/APAP 5-325MG 1 EACH TAB PO PRN (12:56)
[2020-04-16 13:42] LABS: Prothrombin Time 10.6 sec (9.0-12.0)
[2020-04-16] MEDS: SODIUM CHLORIDE 0.9% 1,000 ML IV SCH (13:56)
[2020-04-16] MEDS: HEPARIN SODIUM,PORCINE 5,000 UNIT/ML 1 ML VIAL SQ SCH (13:57)
[2020-04-16] MEDS: MORPHINE SULFATE 4 MG/ML SYRINGE IV PRN (13:57)
[2020-04-16] MEDS: PANTOPRAZOLE 40 MG/10 ML VIAL IVP SCH (13:57)
--- NOTE | 2020-04-16 13:59 | XR ---
EXAMINATION TYPE: XR chest 1V portable DATE OF EXAM: 04/16/2020 COMPARISON: 11/02/2018 HISTORY: Congestive heart failure and shortness of breath TECHNIQUE: Single frontal view of the chest is obtained. FINDINGS: There is no focal air space opacity, pleural effusion, or pneumothorax seen. The cardiac silhouette size is upper limits of normal. The osseous structures are intact. IMPRESSION: No acute cardiopulmonary process.
[2020-04-16] MEDS: IBUPROFEN 400 MG TAB PO PRN (14:53)
--- NOTE | 2020-04-16 15:02 | HP ---
HISTORY AND PHYSICAL DATE OF SERVICE: 04/16/2020 CHIEF COMPLAINTS: Right-sided abdominal and loin pain as well as chills. HISTORY OF PRESENT ILLNESS: This 49-year-old woman with a past medical history of hypertension, history of DJD, rheumatoid arthritis, migraine, cholecystectomy, history of anxiety being followed by Dr. Caceres in the patient is not feeling well over the past several days. Patient had urinary urgency, flank pain, fever. The patient was started on Friday by antibiotics. Urine culture was done which showed E coli which is polysensitive. Today the patient is having fever up to 105 and the patient also had recurrent chills. The patient has taken Cipro 500 mg p.o. b.i.d. With lack of improvement, patient came to [facility] and was admitted to the hospital for further evaluation and treatment. The white count is elevated to 16.8 and sodium was 134. The patient also underwent abdomen and pelvis CAT scan which showed acute obstructive uropathy on the right with moderate right hydronephrosis and severe dilatation of the right renal sinus. Right ureter is dilated proximal and midportion, decompressed distally without CT evidence of radiopaque obstructive material. Perinephric fat stranding was also noted. Some biliary dilatation also noted status post cholecystectomy. There is no history of any headache, loss of consciousness, chest pain, palpitations, shortness of breath at this time. PAST MEDICAL HISTORY: History of hypertension, DJD, history of rheumatoid arthritis, history of migraine, cholecystectomy. MEDICATIONS: Home medications are: 1. Zoloft 100 mg p.o. daily. 2. Enbrel 50 mg subcu Friday. 3. Multivitamins 1 daily. 4. Prinivil 10 mg daily. ALLERGIES: None. FAMILY HISTORY: No history of any heart disease or any strokes in the family. SOCIAL HISTORY: No history of smoking. No history of alcohol intake. REVIEW OF SYSTEMS: ENT: No diminished vision. No diminished hearing. CARDIOVASCULAR: No angina or palpitations. RESPIRATIONS: As mentioned earlier. GI: As mentioned earlier. : As mentioned earlier. NERVOUS SYSTEM: No numbness or weakness. ALLERGY/IMMUNOLOGY: No asthma or hayfever. MUSCULOSKELETAL as mentioned earlier. HEMATOLOGY/ONCOLOGY: No history of anemia. ENDOCRINE: No history of diabetes or hypothyroidism. CONSTITUTIONAL: As mentioned earlier. DERMATOLOGY: Negative. RHEUMATOLOGY: Negative. PSYCHIATRIC: As mentioned earlier. PHYSICAL EXAMINATION: Alert and oriented times three. Pulse 89, blood pressure 123/77. Respirations 18, temperature 100.6, pulse ox 98% on room air. HEENT: Conjunctivae normal. Oral mucosa moist. NECK is no jugular venous distention. No carotid bruit. No lymph node enlargement. Cardiovascular system: S1, S2. No S3, no S4. RESPIRATORY: Breath sounds diminished in the bases. No rhonchi. No crackles. ABDOMEN: Soft. Mild diffuse tenderness in the right side of the abdomen and the right renal angle also present. No mass palpable./ LEGS: No edema. No swelling. NERVOUS SYSTEM: Higher functions as mentioned earlier. Moves all four limbs. No focal motor or sensory deficits. LYMPHATICS: No lymph nodes palpable in the neck, axillae or groin. SKIN: No ulcer, rashes or bleeding. JOINTS: No active deforming arthropathy. LAB STUDIES: WBC 16.8, hemoglobin 11, sodium 134. Glucose 105, AST 61, ALT is 86. UA noted. ASSESSMENT: 1. Acute right-sided pyelonephritis with possible sepsis present on admission. 2. Obstructive uropathy with right-sided hydronephrosis. 3. Increased WBC. 4. Anemia, normocytic. 5. Hyponatremia, mild. 6. Increased AST, ALT. 7. History of hypertension. 8. History of degenerative joint disease. 9. History of rheumatoid arthritis. 10.History of migraine. 11.History of cholecystectomy. 12.History of anxiety. 13.FULL CODE. RECOMMENDATIONS AND DISCUSSION: In this 49-year-old woman who presented with multiple complex medical issues, we will monitor the patient closely, continue the current medications, symptomatic treatment. Broad-spectrum IV antibiotics. Urology has been consulted. Continue to monitor. DVT prophylaxis. Resume the home medications. Prognosis guarded because of multiple complex medical issues. Further recommendations to follow. A copy of dictation being forwarded to Dr. Caceres who is the primary physician. MMMARJORIEL / LAILAN: [id number] /
[2020-04-16] MEDS ORDERED: ACETAMINOPHEN IV (For NPO) 1,000 MG/100 ML VIAL IVPB ONE (17:20)
[2020-04-16] MEDS ORDERED: PROPOFOL 10 MG/ML 20 ML VIAL IV ONE (17:55)
[2020-04-16] MEDS ORDERED: ONDANSETRON 4 MG/2 ML VIAL ONE (17:55)
[2020-04-16] MEDS ORDERED: MIDAZOLAM 2 MG/2 ML VIAL ONE (17:55)
[2020-04-16] MEDS ORDERED: fentaNYL (PF) 50 MCG/ML 2 ML AMP ONE (17:55)
[2020-04-16] MEDS ORDERED: SUCCINYLCHOLINE CHLORIDE 100 MG/5 ML SYR IV ONE (17:55)
[2020-04-16] MEDS ORDERED: LIDOCAINE 1% INJ 10MG/ML (20 ML MDV) ONE (17:55)
[2020-04-16] MEDS ORDERED: DEXAMETHASONE SOD PHOS (MDV) 100 MG/10 ML VIAL ONE (17:55)
[2020-04-16] MEDS ORDERED: SODIUM CHLORIDE 0.9% 1,000 ML IV ONE (18:00)
[2020-04-16] MEDS ORDERED: IOPAMIDOL-370 50ML BTL IRRIGATION ONE (18:20)
[2020-04-16] MEDS ORDERED: LACTATED RINGERS 1,000 ML IV ONE (18:21)
--- NOTE | 2020-04-16 18:31 | P.OP ---
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 She had been placed on Cipro for urinary infection but the microbiology showed that the infection was not sensitive to Cipro. She had right-sided abdominal pain. Computed tomography scan showed right-sided hydronephrosis to the mid ureter. She come for cystoscopy retrograde pyelogram placement of stent to accelerate the recuperation of the pyonephrosis, pyelonephritis. Description of Procedure: The patient is brought to the operating suite. She's given general endotracheal anesthesia. She's placed lithotomy position with sterile prep and drape. Cystoscopy Foroblique lens and 22-Albanian sheath identifies a very capacious bladder that is acutely inflamed. There is no tumor stone or diverticula. Each ureteral orifice is normal. Within a cone-tipped catheter a right retrograde pyelogram performed. The distal ureter up to the UPJ is of normal size and caliber. There is no intraluminal or extra luminal defects. 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 An 035 wires and passed up the ureter into the renal pelvis. Over the wires and passed a 6 x 24 double-J catheter coils in the renal pelvis and in the bladder. The bladder strain the patient's awake and returned recovery room good condition Impression pyelonephritis, pyonephrosis right secondary to UTI aggravated by UPJ obstruction, congenital Recommendations: The patient can be discharged home urologically whenever she is stable. She'll follow-up in the office in 10 days for stent removal. I doubt the UPJ obstruction will need to be surgically repaired at this point in time.
[2020-04-16] MEDS ORDERED: KETOROLAC 30 MG/ML 1 ML VIAL IVP ONE (18:40)
[2020-04-16] MEDS ORDERED: HYDROmorphone 0.5 MG/0.5 ML SYRINGE IVP ONE ×2 (19:40→19:45)
--- NOTE | 2020-04-16 23:30 | P.CONS ---
History of Present Illness - Reason for Consult Consult date: 04/16/20 Sepsis Requesting physician: Pavel Branch - Chief Complaint Fever and right flank day x days - History of Present Illness Patient is a 49-year-old female presenting to the ER with chief complaints of right flank pain fever and urgency patient symptoms started last Friday about 4 days prior to presentation hospital with the patient basically he did have symptoms of urinary frequency and urgency the patient try to manage her symptom initially at home subsequently the patient had did have a urine sample dropped off at [facility]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 patient has been started on oral Cipro by her primary care physician with the patient has been taking however the patient did have an improvement in her symptoms the day presented hospital the patient had a fever of 105 before right hip complaining of pain to the right flank area to be sharp almost 10 or 10 in severity, no radiation has felt nauseated but no vomiting with the symptom had the patient presented to [facility] ER on arrival to the ER patient did have a fever of 103.6 Xeroform height patient has been tachycardic and did have white count of 16.8 kidney function was normal urine was positive patient did have a CT of abdominal pelvis completed we did shows acute obstructive uropathy on the right with moderate right hydro-ureteronephrosis and still dilatation of the right renal sinus patient was started on Rocephin 2 g daily has been admitted to hospital infectious disease was consulted for further management of antibiotic therapy. Review of Systems Positive point has been mentioned in HPI rest of the systems are negative Past Medical History Past Medical History: Hypertension, Osteoarthritis (OA), Rheumatoid Arthritis (RA) Additional Past Medical History / Comment(s): migraines. Nathen Syndrome History of Any Multi-Drug Resistant Organisms: None Reported Past Surgical History: Cholecystectomy, Orthopedic Surgery, Tubal Ligation Additional Past Surgical History / Comment(s): carpel tunnel, knee - arthro Past Anesthesia/Blood Transfusion Reactions: No Reported Reaction Past Psychological History: Anxiety Smoking Status: Never smoker Past Alcohol Use History: Occasional Past Drug Use History: None Reported Medications and Allergies Home Medications Medication Instructions Recorded Confirmed Type Etanercept [Enbrel] 50 mg SQ TU 11/02/18 04/16/20 History Lisinopril [Prinivil] 10 mg PO DAILY #10 tab 11/02/18 04/16/20 Rx Multivitamins, Thera [Multivitamin 1 tab PO DAILY 04/16/20 04/16/20 History (formulary)] Sertraline [Zoloft] 100 mg PO DAILY 04/16/20 04/16/20 History Allergies Allergy/AdvReac Type Severity Reaction Status Date / Time No Known Allergies Allergy Verified 04/16/20 13:11 Physical Exam Vitals: Vital Signs Temp Pulse Pulse Resp BP BP Pulse Ox 04/16/20 14:44 103.1 F H 04/16/20 13:13 103.5 F H 92 18 155/79 97 04/16/20 12:39 100.6 F H 89 18 123/76 98 04/16/20 10:26 98.9 F 67 16 100/51 99 04/16/20 07:42 99.6 F 96 18 149/76 96 Intake and Output 04/16/20 04/16/20 04/16/20 06:59 14:59 22:59 Output Total 500 Balance -500 Output: Urine 500 Other: Voiding Method Toilet # Voids 1 Weight 88.451 kg GENERAL DESCRIPTION: Middle-aged female lying in bed, no distress. No tachypnea or accessory muscle of respiration use. HEENT: Shows Pallor , no scleral icterus. Oral mucous membrane is dry. NECK: Trachea central, no thyromegaly. LUNGS: Unlabored breathing. Clear to auscultation anteriorly. No wheeze or crackle. HEART: S1, S2, regular rate and rhythm. ABDOMEN: Soft, right flank tenderness , guarding or rigidity EXTREMITIES: No edema of feet. SKIN: No rash, no masses palpable. NEUROLOGICAL: The patient is awake, alert, oriented x3, mood and affect normal. Results CBC & Chem 7: 04/16/20 08:45 04/16/20 08:45 Labs: Abnormal Lab Results - Last 24 Hours (Table) 04/16/20 04/16/20 04/16/20 Range/Units 08:45 08:45 08:45 WBC 16.8 H (3.8-10.6) k/uL RBC 3.75 L (3.80-5.40) m/uL Hgb 11.0 L (11.4-16.0) gm/dL Hct 33.7 L (34.0-46.0) % Neutrophils # 14.0 H (1.3-7.7) k/uL Monocytes # 1.2 H (0-1.0) k/uL Sodium 134 L (137-145) mmol/L Glucose 105 H (74-99) mg/dL AST 61 H (14-36) U/L ALT 86 H (4-34) U/L Urine Appearance Cloudy H (Clear) Urine Protein 1+ H (Negative) Ur Leukocyte Esterase Large H (Negative) Urine WBC 115 H (0-5) /hpf Urine Bacteria Rare H (None) /hpf Hyaline Casts 17 H (0-2) /lpf Urine Mucus Rare H (None) /hpf Assessment and Plan Assessment: patient presented to the hospital with sepsis in this patient who did have a fever tachycardia elevated white count source is complicated right-sided pyelone phritis dyspnea did have evidence of moderate right-sided hydro-uretero nephrosis failing outpatient oral Cipro therapy with urine culture in an outpatient setting reassuring E. coli there was resistant to Cipro. (1) Sepsis Current Visit: Yes Status: Acute Code(s): A41.9 - SEPSIS, UNSPECIFIED ORGANISM SNOMED Code(s): 25277754 (2) Pyelonephritis Current Visit: Yes Status: Acute Code(s): N12 - TUBULO-INTERSTITIAL NEPHRITIS, NOT SPCF ACUTE OR CHRONIC SNOMED Code(s): 30285789 Plan: 1-Rocephin 2 g piggyback daily 2-await cystoscopy with the ureteral stent placement later this afternoon per urology 3-IV fluids We will follow on clinical condition and cultures to further adjust medication if needed Thank you for this consultation we will follow the patient along with you Time with Patient: Greater than 30
[2020-04-17] MEDS: HEPARIN SODIUM,PORCINE 5,000 UNIT/ML 1 ML VIAL SQ SCH ×3 (00:33→21:00)
[2020-04-17] MEDS: SODIUM CHLORIDE 0.9% 1,000 ML IV SCH ×4 (03:34→20:59)
[2020-04-17] MEDS: MORPHINE SULFATE 4 MG/ML SYRINGE IV PRN ×3 (03:37→22:15)
--- NOTE | 2020-04-17 07:23 | FL ---
EXAMINATION TYPE: FL urography retrograde DATE OF EXAM: 04/16/2020 FLUOROSCOPY Fluoroscopy time of 35 seconds was used during urologic intervention, right ureteral stent insertion. 2 image/s document/s the procedure.
[2020-04-17 08:01] LABS: Basophils % (A) 0 %; Eosinophils % (A) 0 %; HCT 33.2 % (34.0-46.0); HGB 11.2 gm/dL (11.4-16.0); Lymphocytes # (A) 1.1 k/uL (1.0-4.8); Lymphocytes % (A) 6 %; MCH 30.8 pg (25.0-35.0); MCHC 33.6 g/dL (31.0-37.0); MCV 91.6 fL (80.0-100.0); Mean Platelet Volume 7.4; Monocytes # (A) 0.4 k/uL (0-1.0); Monocytes % (A) 2 %; Neutrophils # (A) 16.5 k/uL (1.3-7.7); Neutrophils % (A) 91 %; Platelet Count 312 k/uL (150-450); RBC 3.62 m/uL (3.80-5.40); RDW 12.6 % (11.5-15.5); WBC 18.2 k/uL (3.8-10.6)
[2020-04-17] MEDS: PANTOPRAZOLE 40 MG/10 ML VIAL IVP SCH (08:20)
[2020-04-17] MEDS: SERTRALINE 100 MG TAB PO SCH (08:21)
[2020-04-17] MEDS: LISINOPRIL 10 MG TAB PO SCH (08:21)
[2020-04-17] MEDS: MULTIVITAMINS, THERA 1 EACH TAB PO SCH (08:21)
[2020-04-17] MEDS: IBUPROFEN 400 MG TAB PO PRN (08:46)
[2020-04-17 08:55] LABS: ALT 88 U/L (4-34); AST 51 U/L (14-36); African American GFR (CKD) >90 (>60 ml/min/1.73 sqM); Albumin 3.2 g/dL (3.5-5.0); Alkaline Phosphatase 133 U/L (38-126); Anion Gap 9 mmol/L; Blood Urea Nitrogen 11 mg/dL (7-17); Calcium 8.6 mg/dL (8.4-10.2); Carbon Dioxide 22 mmol/L (22-30); Chloride 107 mmol/L (98-107); Glucose 116 mg/dL (74-99); Non-African American GFR(CKD) >90 (>60 ml/min/1.73 sqM); Potassium 3.8 mmol/L (3.5-5.1); Sodium 138 mmol/L (137-145); Total Bilirubin 0.2 mg/dL (0.2-1.3); Total Protein 6.2 g/dL (6.3-8.2)
--- NOTE | 2020-04-17 11:44 | P.PN ---
Subjective Progress Note Date: 04/17/20 The patient is feeling much better after the cysto with stent. Fever is gone. Ok to go home from a urologic standpoint. I will do cystoscopy with stent removal in about 10 days. She should stay on antibiotics until this time. The patient does have a UPJ obstruction on the right. This will be evaluated with a renal scan Lasix washout at a later date. She also has problems with her bladder is in my opinion. She has a capacious bladder and needs to make sure she empties on a regular basis. This will be discussed and evaluated as an outpatient. I discussed the subject with the patient already. Objective - Vital Signs Vital signs: Vital Signs Temp 99 F 04/17/20 11:25 Pulse 68 04/17/20 11:25 Resp 16 04/17/20 11:25 BP 127/73 04/17/20 11:25 Pulse Ox 99 04/17/20 11:25 Intake & Output 04/16/20 04/17/20 04/17/20 18:59 06:59 18:59 Intake Total 400 600 60 Output Total 500 Balance -100 600 60 Weight 88.451 kg Intake: IV 400 600 Oral 60 Output: Urine 500 Other: Voiding Method Toilet Toilet Toilet # Voids 1 1 1 # Bowel Movements 1 - Labs CBC & Chem 7: 04/17/20 07:24 04/17/20 07:24 Labs: Abnormal Lab Results - Last 24 Hours (Table) 04/17/20 04/17/20 Range/Units 07:24 07:24 WBC 18.2 H (3.8-10.6) k/uL RBC 3.62 L (3.80-5.40) m/uL Hgb 11.2 L (11.4-16.0) gm/dL Hct 33.2 L (34.0-46.0) % Neutrophils # 16.5 H (1.3-7.7) k/uL Glucose 116 H (74-99) mg/dL AST 51 H (14-36) U/L ALT 88 H (4-34) U/L Alkaline Phosphatase 133 H (38-126) U/L Total Protein 6.2 L (6.3-8.2) g/dL Albumin 3.2 L (3.5-5.0) g/dL Microbiology - Last 24 Hours (Table) 04/16/20 08:45 Blood Culture - Preliminary Blood No Growth after 24 hours 04/16/20 08:45 Urine Culture - Preliminary Urine,Voided
[2020-04-17] MEDS: ONDANSETRON 4 MG/2 ML VIAL IVP PRN (13:29)
--- NOTE | 2020-04-17 14:46 | P.PN ---
Subjective Progress Note Date: 04/17/20 Principal diagnosis: This is a 49-year-old female who was recently admitted with urinary urgency, frequency, and right flank pain along with fever and is being closely monitored. Patient was being treated in the outpatient setting with Cipro as her original urine culture showed E. coli although continued to not feel well and actually worsened. White blood count currently trending up and 18.2 today. Patient currently on IV ceftriaxone and will continue at this time. Patient was seen and evaluated by urology today and underwent cystoscopy with right retrograde pyelogram and placement of a double-J catheter with Dr. Barney. Urology recommending outpatient follow-up for stent removal and continued antibiotics. Patient continues to have some CVA tenderness and white blood count is elevated with a low-grade fever with some intermittent nausea noted. Will repeat a.mEdilma phipps. Awaiting repeat urine cultures as well. No reports of chest pain or palpitations. Intermittent nausea noted and denies any vomiting at this time. Review of systems: Constitutional: Reports mild fevers, chills, no reports of fatigue Cardiovascular: No reports of chest pain or palpitations Respiratory: No reports her shortness of breath or cough GI: Reports intermittent nausea, no reports of vomiting or diarrhea : Reports mild dysuria, no reports of retention Neurovascular: No reports of weakness or numbness Active Medications Acetaminophen (Tylenol Tab) 650 mg PO Q6HR PRN PRN Reason: Mild Pain or Fever > 100.5 Last Admin: 04/16/20 12:36 Dose: 650 mg Documented by: Hydrocodone Bitart/Acetaminophen ([place] 5-325) 1 each PO Q6HR PRN PRN Reason: Pain Alprazolam (Xanax) 0.25 mg PO TID PRN PRN Reason: Anxiety Heparin Sodium (Porcine) (Heparin) 5,000 unit SQ Q12HR [facility] Last Admin: 04/17/20 10:09 Dose: 5,000 unit Documented by: Sodium Chloride (Saline 0.9%) 1,000 mls @ 120 mls/hr IV .Q8H20M [facility] Last Admin: 04/17/20 10:09 Dose: 120 mls/hr Documented by: Ceftriaxone Sodium 2 gm/ (Sodium Chloride) 50 mls @ 100 mls/hr IVPB Q24HR [facility] Last Admin: 04/17/20 08:21 Dose: 100 mls/hr Documented by: Ibuprofen (Motrin) 400 mg PO Q6HR PRN PRN Reason: Pain Last Admin: 04/17/20 08:46 Dose: 400 mg Documented by: Lisinopril (Zestril) 10 mg PO DAILY [facility] Last Admin: 04/17/20 08:21 Dose: 10 mg Documented by: Morphine Sulfate (Morphine Sulfate (Inj)) 4 mg IV Q4HR PRN PRN Reason: Severe Pain Last Admin: 04/17/20 03:37 Dose: 4 mg Documented by: Multivitamins (Theragran) 1 each PO DAILY [facility] Last Admin: 04/17/20 08:21 Dose: 1 each Documented by: Naloxone HCl (Narcan) 0.2 mg IV Q2M PRN PRN Reason: Opioid Reversal Ondansetron HCl (Zofran) 4 mg IVP Q6HR PRN PRN Reason: Nausea And Vomiting Last Admin: 04/17/20 13:29 Dose: 4 mg Documented by: Pantoprazole Sodium (Protonix) 40 mg IVP DAILY [facility] Last Admin: 04/17/20 08:20 Dose: 40 mg Documented by: Sertraline HCl (Zoloft) 100 mg PO DAILY [facility] Last Admin: 04/17/20 08:21 Dose: 100 mg Documented by: Temazepam (Restoril) 15 mg PO HS PRN PRN Reason: Insomnia Objective - Vital Signs Vital signs: Vital Signs Temp 99 F 04/17/20 11:25 Pulse 68 04/17/20 11:25 Resp 16 04/17/20 11:25 BP 127/73 04/17/20 11:25 Pulse Ox 99 04/17/20 11:25 Intake & Output 04/16/20 04/17/20 04/17/20 18:59 06:59 18:59 Intake Total 400 600 60 Output Total 500 Balance -100 600 60 Weight 88.451 kg Intake: IV 400 600 Oral 60 Output: Urine 500 Other: Voiding Method Toilet Toilet Toilet # Voids 1 1 1 # Bowel Movements 1 - Exam Gen: This is a 49-year-old female sitting up in bed, awake and alert and oriented 3, well-developed, well-nourished. Temp is 98.8F, pulse is 76, respiration is 16, blood pressure is 114/72, oxygen saturation is 100% on room air. HEENT: Head is atraumatic, normocephalic. Pupils equal, round. Sclerae is anicteric. NECK: Supple. No JVD. No lymphadenopathy. No thyromegaly. LUNGS: Breath sounds diminished at the bases with no wheezing or rhonchi noted. No intercostal retractions. HEART: S1, S2 present. Regular rate and rhythm. No murmur. ABDOMEN: Soft. Bowel sounds are present. No masses. Mild tenderness noted on the right. EXTREMITIES: No pedal edema. No calf tenderness. NEUROLOGICAL: Patient is awake, alert and oriented x3. Cranial nerves 2 through 12 are grossly intact. - Labs CBC & Chem 7: 04/17/20 07:24 04/17/20 07:24 Labs: Abnormal Lab Results - Last 24 Hours (Table) 04/17/20 04/17/20 Range/Units 07:24 07:24 WBC 18.2 H (3.8-10.6) k/uL RBC 3.62 L (3.80-5.40) m/uL Hgb 11.2 L (11.4-16.0) gm/dL Hct 33.2 L (34.0-46.0) % Neutrophils # 16.5 H (1.3-7.7) k/uL Glucose 116 H (74-99) mg/dL AST 51 H (14-36) U/L ALT 88 H (4-34) U/L Alkaline Phosphatase 133 H (38-126) U/L Total Protein 6.2 L (6.3-8.2) g/dL Albumin 3.2 L (3.5-5.0) g/dL Microbiology - Last 24 Hours (Table) 04/16/20 08:45 Blood Culture - Preliminary Blood No Growth after 24 hours 04/16/20 08:45 Urine Culture - Preliminary Urine,Voided Assessment and Plan Assessment: Acute right-sided pyelonephritis with possible sepsis, present on admission Obstructive uropathy with right-sided hydronephrosis Increased WBC Anemia, normocytic Hyponatremia, mild Increased AST, ALT History of hypertension history of degenerative joint disease history of rheumatoid arthritis History of migraines History of cholecystectomy History of anxiety Full code Recommendations and discussion: Recommend continue current medications, management, and symptomatically katelynn tment. Urology evaluated the patient recommending outpatient follow-up and continued antibiotic therapy status post stent placement. Infectious disease is following. Awaiting urine culture finalization. Patient is currently maintained on IV Rocephin will continue at this time. White blood count slightly elevated at 18.2 with a low-grade fever noted. Will continue to monitor vital signs and labs closely. Will repeat a.m. labs.
[2020-04-17] MEDS: ALPRAZolam 0.25 MG TAB PO PRN (16:05)
[2020-04-17 20:04] VITALS: RESP 18
[2020-04-17 20:31] LABS: Hepatitis A Antibody IgM Non-Reactive (Non-Reactive); Hepatitis B Core IgM Non-Reactive (Non-Reactive); Hepatitis B Surface Antigen Non-Reactive (Non-Reactive); Hepatitis C IgG Antibody Non-Reactive (Non-Reactive)
--- NOTE | 2020-04-17 23:23 | PN ---
PROGRESS NOTE DATE OF SERVICE: 04/17/2020 REASON FOR FOLLOWUP: Complicated UTI/pyelonephritis, E coli. INTERVAL HISTORY: The patient is currently afebrile. The patient is breathing comfortably. The patient's right flank has improved. No chest pain, shortness of breath or cough. No abdominal pain or diarrhea. PHYSICAL EXAMINATION: Blood pressure 113/69 with a pulse of 71, temperature 99.5. She is 97% on room air. General description is an elderly female up in the bed in no distress. RESPIRATORY SYSTEM: Unlabored breathing. Clear to auscultation anteriorly. HEART: S1, S2. Regular rate and rhythm. ABDOMEN: Soft. No tenderness. LABS: Hemoglobin 11.8, white count 18.2, BUN 11, creatinine 0.61. DIAGNOSTIC IMPRESSION AND PLAN: Patient with a complicated urinary tract infection in this patient who is status post cystoscopy and right ureteral stent placement. Outpatient culture with an E coli. Patient covered with Rocephin 2 grams daily. White count has slightly jumped up. To be monitored closely as well as culture and continue with supportive care. MMODL / IJN: [id number] /
[2020-04-18] MEDS: IBUPROFEN 400 MG TAB PO PRN ×2 (00:01→08:24)
[2020-04-18] MEDS: SODIUM CHLORIDE 0.9% 1,000 ML IV SCH (03:20)
[2020-04-18] MEDS: ALPRAZolam 0.25 MG TAB PO PRN ×2 (03:20→10:23)
[2020-04-18 08:03] LABS: Basophils # (A) 0.1 k/uL (0-0.2); Basophils % (A) 1 %; Eosinophils # (A) 0.1 k/uL (0-0.7); Eosinophils % (A) 1 %; HCT 30.3 % (34.0-46.0); Lymphocytes # (A) 2.2 k/uL (1.0-4.8); Lymphocytes % (A) 19 %; MCH 28.9 pg (25.0-35.0); MCHC 31.4 g/dL (31.0-37.0); Monocytes # (A) 0.5 k/uL (0-1.0); Monocytes % (A) 4 %; Neutrophils # (A) 8.6 k/uL (1.3-7.7); Neutrophils % (A) 73 %; Platelet Count 261 k/uL (150-450); RBC 3.29 m/uL (3.80-5.40); RDW 12.6 % (11.5-15.5); WBC 11.7 k/uL (3.8-10.6)
[2020-04-18 08:09] LABS: HGB 9.5 gm/dL (11.4-16.0)
[2020-04-18 08:17] LABS: ALT 58 U/L (4-34); AST 27 U/L (14-36); African American GFR (CKD) >90 (>60 ml/min/1.73 sqM); Albumin 2.9 g/dL (3.5-5.0); Alkaline Phosphatase 110 U/L (38-126); Anion Gap 5 mmol/L; Blood Urea Nitrogen 9 mg/dL (7-17); Calcium 8.3 mg/dL (8.4-10.2); Carbon Dioxide 23 mmol/L (22-30); Chloride 110 mmol/L (98-107); Glucose 88 mg/dL (74-99); Non-African American GFR(CKD) >90 (>60 ml/min/1.73 sqM); Potassium 3.7 mmol/L (3.5-5.1); Sodium 138 mmol/L (137-145); Total Bilirubin <0.1 mg/dL (0.2-1.3); Total Protein 5.7 g/dL (6.3-8.2)
[2020-04-18] MEDS: PANTOPRAZOLE 40 MG/10 ML VIAL IVP SCH (08:22)
[2020-04-18] MEDS: HEPARIN SODIUM,PORCINE 5,000 UNIT/ML 1 ML VIAL SQ SCH (08:22)
[2020-04-18] MEDS: LISINOPRIL 10 MG TAB PO SCH (08:23)
[2020-04-18] MEDS: MULTIVITAMINS, THERA 1 EACH TAB PO SCH (08:23)
--- NOTE | 2020-04-18 12:56 | P.PN ---
Subjective Progress Note Date: 04/18/20 Principal diagnosis: This is a 49-year-old female who was recently admitted with urinary urgency, frequency, and right flank pain along with fever and is being closely monitored. Patient was being treated in the outpatient setting with Cipro as her original urine culture showed E. coli although continued to not feel well and actually worsened. White blood count currently trending up and 18.2 today. Patient currently on IV ceftriaxone and will continue at this time. Patient was seen and evaluated by urology today and underwent cystoscopy with right retrograde pyelogram and placement of a double-J catheter with Dr. Barney. Urology recommending outpatient follow-up for stent removal and continued antibiotics. Patient continues to have some CVA tenderness and white blood count is elevated with a low-grade fever with some intermittent nausea noted. Will repeat a.mEdilma phipps. Awaiting repeat urine cultures as well. No reports of chest pain or palpitations. Intermittent nausea noted and denies any vomiting at this time. Review of systems: Constitutional: Reports mild fevers, chills, no reports of fatigue Cardiovascular: No reports of chest pain or palpitations Respiratory: No reports her shortness of breath or cough GI: Reports intermittent nausea, no reports of vomiting or diarrhea : Reports mild dysuria, no reports of retention Neurovascular: No reports of weakness or numbness 04/18/2020 Patient is seen and evaluated and follow-up D she feels slightly better since yesterday although still continues to have some right-sided CVA tenderness. Patient states Motrin is helping. No reports of chest pain, shortness of breath, or palpitations. Patient having intermittent low-grade 99 temps there is being closely monitored. Urine culture preliminary showing gram-negative bacilli and awaiting culture finalization. Patient is maintained on IV Rocephin and will continue at this time. Infectious disease is following. White blood count trending down and 11.7 today. Current sodium is 138, creatinine is 0.67. Liver function testing also improving. Acute hepatitis panel was negative. Objective - Vital Signs Vital signs: Vital Signs Temp 98.3 F 04/18/20 08:00 Pulse 89 04/18/20 08:00 Resp 18 04/18/20 08:00 BP 156/88 04/18/20 08:00 Pulse Ox 100 04/18/20 08:00 Intake & Output 0604/18/20 04/18/20 18:59 06:59 18:59 Intake Total 540 1880 400 Output Total 400 1950 Balance 140 -70 400 Intake: Intake, IV Titration 1200 Amount Sodium Chloride 0.9% 1, 1200 000 ml @ 120 mls/hr IV . Q8H20M [facility] Rx#:[id number] Oral 540 680 400 Output: Urine 400 1950 Other: Voiding Method Toilet Toilet Toilet # Voids 1 2 1 - Exam Gen: This is a 49-year-old female sitting up in bed, awake and alert and oriented 3, well-developed, well-nourished. HEENT: Head is atraumatic, normocephalic. Pupils equal, round. Sclerae is anicteric. NECK: Supple. No JVD. No lymphadenopathy. No thyromegaly. LUNGS: Breath sounds diminished at the bases with no wheezing or rhonchi noted. No intercostal retractions. HEART: S1, S2 present. Regular rate and rhythm. No murmur. ABDOMEN: Soft. Bowel sounds are present. No masses. Mild tenderness noted on the right. Lightly improved from yesterday EXTREMITIES: No pedal edema. No calf tenderness. NEUROLOGICAL: Patient is awake, alert and oriented x3. Cranial nerves 2 through 12 are grossly intact. - Labs CBC & Chem 7: 04/18/20 07:39 04/18/20 07:39 Labs: Abnormal Lab Results - Last 24 Hours (Table) 04/18/20 04/18/20 Range/Units 07:39 07:39 WBC 11.7 H (3.8-10.6) k/uL RBC 3.29 L (3.80-5.40) m/uL Hgb 9.5 L D (11.4-16.0) gm/dL Hct 30.3 L (34.0-46.0) % Neutrophils # 8.6 H (1.3-7.7) k/uL Chloride 110 H (98-107) mmol/L Calcium 8.3 L (8.4-10.2) mg/dL Total Bilirubin <0.1 L (0.2-1.3) mg/dL ALT 58 H (4-34) U/L Total Protein 5.7 L (6.3-8.2) g/dL Albumin 2.9 L (3.5-5.0) g/dL Microbiology - Last 24 Hours (Table) 04/16/20 08:45 Blood Culture - Preliminary Blood No Growth after 48 hours 04/16/20 08:45 Urine Culture - Preliminary Urine,Voided Gram Neg Bacilli Assessment and Plan Assessment: Acute right-sided pyelonephritis with possible sepsis, present on admission Obstructive uropathy with right-sided hydronephrosis Status post cystoscopy, right retrograde pyelogram, and placement of a double-J catheter Increased WBC, improving Anemia, normocytic Hyponatremia, mild Increased AST, ALT, improving History of hypertension history of degenerative joint disease history of rheumatoid arthritis History of migraines History of cholecystectomy History of anxiety Full code Recommendations and discussion: Recommend continue current medications, management, and symptomatic treatment. Preliminary urine culture showing gram-negative bacilli. Infectious disease is following. Awaiting urine culture finalization. Patient is currently maintained on IV Rocephin will continue at this time. White blood count trending down at 11.7 with a low-grade fever noted. Will continue to monitor vital signs and labs closely. Will repeat a.m. labs. Will discharge in 24 hours.
[2020-04-18] MEDS: SERTRALINE 100 MG TAB PO SCH (13:09)
[2020-04-18] MEDS: ONDANSETRON 4 MG/2 ML VIAL IVP PRN (13:09)
--- NOTE | 2020-04-18 15:17 | PN ---
PROGRESS NOTE DATE OF SERVICE: 04/18/2020 REASON FOR FOLLOWUP: Right-sided pyelonephritis. INTERVAL HISTORY: The patient is currently afebrile, patient is breathing comfortably. The patient denies having any chest pain. No shortness of breath or cough. No nausea, vomiting, right flank pain has improved, no diarrhea. PHYSICAL EXAMINATION: Blood pressure 156/88 with a pulse of 89, temperature 98.3, she is 100% on room air. General description is a middle-aged female lying in bed in no distress. RESPIRATORY SYSTEM: Unlabored breathing, clear to auscultation anteriorly. HEART: S1, S2. Regular rate and rhythm. ABDOMEN: Soft, no tenderness. LABS: Hemoglobin 9.5, white count 11.7, creatinine 0.67. Urine with Gram-negative. DIAGNOSTIC IMPRESSION AND PLAN: Patient with right-sided pyelonephritis. Outpatient culture positive for E coli, resistant to Cipro. Inpatient culture currently pending. White count showing a downward trend. Continue Rocephin 2 g daily with a plan to finish his oral antibiotics. Continue supportive care. MMODL / IJN: [id number] /
[2020-04-18 16:02] VITALS: BP 147/78; PULSE 65; TEMP 100.4
--- NOTE | 2020-04-19 09:19 | P.DS ---
Providers Date of admission: 04/16/20 12:00 Expected date of discharge: 04/19/20 Attending physician: Pavel Branch Consults: 04/16/20 11:56 Consult Physician Stat Consulting Provider: Hiren Barney Consult Reason/Comments: pyelonephritis, r/o nonradioopaque ureteral calculi Do you want consulting provider notified?: Yes 04/16/20 13:01 Consult Physician Routine Consulting Provider: Blanca Murillo Consult Reason/Comments: sepsis Do you want consulting provider notified?: Yes Primary care physician: Guadalupe Caceres [facility] Course: Final diagnosis Acute right-sided pyelonephritis with possible sepsis, present on admission Obstructive uropathy with right-sided hydronephrosis Status post cystoscopy, right retrograde pyelogram, and placement of a double-J catheter Increased WBC, improving Anemia, normocytic Hyponatremia, mild Increased AST, ALT, improving History of hypertension history of degenerative joint disease history of rheumatoid arthritis History of migraines History of cholecystectomy History of anxiety Full code Discharge disposition Patient is being discharged in a stable condition with guarded prognosis to home. Patient will continue with home care in the outpatient setting. Patient will follow-up with Dr. Kvng Johns upon discharge. Patient also instructed to follow-up with nephrology in the outpatient setting. Patient will continue on a short course of oral antibiotics in the form of Ceftin for the next 3 days along with nystatin oral swish. Patient also continue on 20 mg of oral Lasix daily and instructed to continue holding lisinopril. Total time taken is 35 minutes. History of present illness This is a 49-year-old female who was recently admitted with fever, chills, urinary frequency, right-sided flank pain and was being closely monitored. Patient was being treated in the outpatient setting with Cipro with no signs of improvement and came to the hospital. Patient was found to have an elevated white blood count and was placed on IV ceftriaxone while awaiting for cultures to finalize. Patient was discharged today on Ceftin 500 mg twice daily for the next 5 days and urine cultures finalized showing E. coli. Patient was seen by urology and had stent placement on the right and will follow-up with him on the outpatient setting in approximately 10 days along with primary care provider. Patient instructed to monitor for fevers and urinary output and follow-up with primary care provider sooner or report to the ER if symptoms worsen. Patient verbalized understanding and agrees with this treatment plan. She states she would really like to go home today and feels better than she did yesterday. Currently no reports of chest pain, palpitations, or shortness of breath. Patient has had intermittent low-grade fevers. No reports of nausea or vomiting and patient is tolerating diet. On exam vital signs are stable. Temp is 100.4 F, pulse is 65, respirations are 18, blood pressure 147/78, oxygen saturation is 100% on room air. Cardio S1, S2 are present. Respiratory shows clear to auscultation. Abdomen is soft and nontender. Nervous system shows no focal deficits. Please refer to medication reconciliation sheet for a list of medications. Patient Condition at Discharge: Stable Plan - Discharge Summary Discharge Rx Participant: Yes New Discharge Prescriptions: New Cefuroxime Axetil [Ceftin] 500 mg PO BID 5 Days #10 tab Ibuprofen [Motrin] 400 mg PO Q6HR PRN #30 tab PRN Reason: Pain Continue Etanercept [Enbrel] 50 mg SQ TU Lisinopril [Prinivil] 10 mg PO DAILY #10 tab Sertraline [Zoloft] 100 mg PO DAILY Multivitamins, Thera [Multivitamin (formulary)] 1 tab PO DAILY Discharge Medication List Etanercept [Enbrel] 50 mg SQ TU 11/02/18 [History] Lisinopril [Prinivil] 10 mg PO DAILY #10 tab 11/02/18 [Rx] Multivitamins, Thera [Multivitamin (formulary)] 1 tab PO DAILY 04/16/20 [History] Sertraline [Zoloft] 100 mg PO DAILY 04/16/20 [History] Cefuroxime Axetil [Ceftin] 500 mg PO BID 5 Days #10 tab 04/18/20 [Rx] Ibuprofen [Motrin] 400 mg PO Q6HR PRN #30 tab 04/18/20 [Rx] Follow up Appointment(s)/Referral(s): Guadalupe Caceres MD [Primary Care Provider] - 1-2 days Hiren Barney MD [STAFF PHYSICIAN] - 10 Days (Fri04-28-2020 at 10:20am for cysto with stent removal) Patient Instructions/Handouts: Urinary Tract Infection in Women (DC) Activity/Diet/Wound Care/Special Instructions: Activity Limited until follow-up Continue with antibiotics until finished Follow-up with primary care provider upon discharge Follow-up with urology in 10 days Continue with Motrin as needed for pain and inflammation Continue current diet Discharge Disposition: HOME SELF-CARE
== END 2020-04-18 17:40 | disposition home or self-care (01) | DRG 854 ==
LOC: EC 07:36 → 6PED 12:00
PROVIDERS: ADMIT Hospitalist; ATTEND Hospitalist
PROC: 0T768DZ Dilation of Right Ureter with Intraluminal Device, Via Natural or Artificial Opening Endoscopic (ICD-10-PCS; principal; 2020-04-16 16:00)
DX: A41.51 Sepsis due to Escherichia coli [E. coli] (principal); E87.1 Hypo-osmolality and hyponatremia; N13.6 Pyonephrosis; M19.90 Unspecified osteoarthritis, unspecified site; G43.909 Migraine, unspecified, not intractable, without status migrainosus; I10 Essential (primary) hypertension; M06.9 Rheumatoid arthritis, unspecified; F41.9 Anxiety disorder, unspecified; D64.9 Anemia, unspecified; Z11.59 Encounter for screening for other viral diseases; Z90.49 Acquired absence of other specified parts of digestive tract; Z79.899 Other long term (current) drug therapy; Z98.51 Tubal ligation status
CPT/HCPCS: 36415; 71045; 74177; 74420; 80053; 80074; 81001; 81025; 83605; 83690; 85025; 85610; 87040; 87077; 87086; 87186; 93005; 96361; 96365; 96375; 96376; 99285

== ENCOUNTER 2020-05-16 11:49 | Observation (INO) | payer BC ==
[2020-05-16] MEDS ORDERED: ONDANSETRON 4 MG/2 ML VIAL IVP STA (12:05)
[2020-05-16] MEDS ORDERED: SODIUM CHLORIDE 0.9% 2,000 ML IV STA (12:05)
[2020-05-16] MEDS ORDERED: HYDROmorphone 1 MG/ML 1 ML SYRINGE IVP STA (12:05)
[2020-05-16] MEDS ORDERED: FAMOTIDINE 20 MG/2 ML VIAL IV STA (12:05)
--- NOTE | 2020-05-16 12:21 | ED ---
General Adult HPI - General Chief complaint: Nausea/Vomiting/Diarrhea Stated complaint: Vomiting,not feeling right Time Seen by Provider: 05/16/20 11:56 Source: patient, RN notes reviewed Mode of arrival: ambulatory Limitations: no limitations - History of Present Illness Initial comments: This a 49-year-old female presents emergency Department chief complaint of severe epigastric to mid abdominal pain. Patient states that she's had worsening pain since Friday night. Patient states pain is unbearable she's been vomiting for last 12 hours. Patient states that it is only bile at this time. Patient feels like she has an ulcer. Patient does admit that she was admitted proximal one month ago for obstructive uropathy and pyelonephritis. Patient states she has stent removed in 10 days after placement in the hospital. Patient states the symptoms have all resolved but this pain is worsened that. Patient denies fever, chills, chest pain shortness of breath. No dysuria no hematuria denies any diarrhea constipation. Patient had a prior chol ecystectomy. - Related Data Home Medications Medication Instructions Recorded Confirmed Etanercept [Enbrel] 50 mg SQ TU 11/02/18 04/16/20 Multivitamins, Thera [Multivitamin 1 tab PO DAILY 04/16/20 04/16/20 (formulary)] Sertraline [Zoloft] 100 mg PO DAILY 04/16/20 04/16/20 Previous Rx's Medication Instructions Recorded Lisinopril [Prinivil] 10 mg PO DAILY #10 tab 11/02/18 Cefuroxime Axetil [Ceftin] 500 mg PO BID 5 Days #10 tab 04/18/20 Ibuprofen [Motrin] 400 mg PO Q6HR PRN #30 tab 04/18/20 Allergies Allergy/AdvReac Type Severity Reaction Status Date / Time No Known Allergies Allergy Verified 05/16/20 11:53 Review of Systems ROS Statement: Those systems with pertinent positive or pertinent negative responses have been documented in the HPI. ROS Other: All systems not noted in ROS Statement are negative. Past Medical History Past Medical History: Hypertension, Osteoarthritis (OA), Rheumatoid Arthritis (RA) Additional Past Medical History / Comment(s): migraines. Nathen Syndrome History of Any Multi-Drug Resistant Organisms: None Reported Past Surgical History: Cholecystectomy, Orthopedic Surgery, Tubal Ligation Additional Past Surgical History / Comment(s): carpel tunnel, knee - arthro, uretal stent plaement Past Anesthesia/Blood Transfusion Reactions: No Reported Reaction Past Psychological History: Anxiety Smoking Status: Never smoker Past Alcohol Use History: Occasional Past Drug Use History: None Reported General Exam Limitations: no limitations General appearance: alert, in no apparent distress Head exam: Present: atraumatic, normocephalic, normal inspection Eye exam: Present: normal appearance, PERRL, EOMI. Absent: scleral icterus, conjunctival injection, periorbital swelling ENT exam: Present: normal exam, normal oropharynx, mucous membranes moist Neck exam: Present: normal inspection, full ROM. Absent: tenderness, meningismus, lymphadenopathy Respiratory exam: Present: normal lung sounds bilaterally. Absent: respiratory distress, wheezes, rales, rhonchi, stridor Cardiovascular Exam: Present: regular rate, normal rhythm, normal heart sounds. Absent: systolic murmur, diastolic murmur, rubs, gallop, clicks GI/Abdominal exam: Present: soft, tenderness (Moderate epigastric to mid abdominal tenderness), normal bowel sounds. Absent: distended, guarding, rebound, rigid Back exam: Absent: CVA tenderness (R), CVA tenderness (L) Neurological exam: Present: alert, oriented X3, CN II-XII intact Skin exam: Present: warm, dry, intact, normal color. Absent: rash Course Vital Signs 05/16/20 11:50 Temperature 99.3 F Pulse Rate 80 Respiratory 16 Rate Blood Pressure 162/107 O2 Sat by Pulse 100 Oximetry Medical Decision Making - Medical Decision Making 49-year-old female presented for nausea vomiting abdominal pain. Patient has elevated liver enzymes, bilirubin, and lactic acid. Patient has no clinical signs of infection though on prior CT performed one month ago he had dilated hepatic ducts. I did recommend MRCP the pain has worsened with elevation of transaminitis. Patient will be admitted for MRCP, GI and surgery evaluation. - Lab Data Result diagrams: 05/16/20 12:15 05/16/20 12:15 Lab Results 05/16/20 05/16/20 05/16/20 Range/Units 12:15 12:15 12:15 WBC 14.5 H (3.8-10.6) k/uL RBC 4.78 (3.80-5.40) m/uL Hgb 14.6 D (11.4-16.0) gm/dL Hct 42.8 (34.0-46.0) % MCV 89.6 (80.0-100.0) fL MCH 30.6 (25.0-35.0) pg MCHC 34.2 (31.0-37.0) g/dL RDW 13.5 (11.5-15.5) % Plt Count 433 (150-450) k/uL Neutrophils % 83 % Lymphocytes % 13 % Monocytes % 3 % Eosinophils % 1 % Basophils % 0 % Neutrophils # 12.0 H (1.3-7.7) k/uL Lymphocytes # 1.9 (1.0-4.8) k/uL Monocytes # 0.4 (0-1.0) k/uL Eosinophils # 0.1 (0-0.7) k/uL Basophils # 0.0 (0-0.2) k/uL Sodium 135 L (137-145) mmol/L Potassium 3.5 (3.5-5.1) mmol/L Chloride 99 (98-107) mmol/L Carbon Dioxide 19 L (22-30) mmol/L Anion Gap 17 mmol/L BUN 12 (7-17) mg/dL Creatinine 0.69 (0.52-1.04) mg/dL Est GFR (CKD-EPI)AfAm >90 (>60 ml/min/1.73 sqM) Est GFR (CKD-EPI)NonAf >90 (>60 ml/min/1.73 sqM) Glucose 123 H (74-99) mg/dL Plasma Lactic Acid Vj (0.7-2.0) mmol/L Calcium 10.6 H (8.4-10.2) mg/dL Total Bilirubin 1.4 H (0.2-1.3) mg/dL AST 296 H (14-36) U/L ALT 218 H (4-34) U/L Alkaline Phosphatase 230 H (38-126) U/L Total Protein 9.0 H (6.3-8.2) g/dL Albumin 5.4 H (3.5-5.0) g/dL Amylase 93 (30-110) U/L Lipase 580 H (23-300) U/L Urine Color Yellow Urine Appearance Clear (Clear) Urine pH 7.0 (5.0-8.0) Ur Specific [place] 1.016 (1.001-1.035) Urine Protein Trace H (Negative) Urine Glucose (UA) Negative (Negative) Urine Ketones Negative (Negative) Urine Blood Negative (Negative) Urine Nitrite Negative (Negative) Urine Bilirubin Negative (Negative) Urine Urobilinogen <2.0 (<2.0) mg/dL Ur Leukocyte Esterase Negative (Negative) 05/16/20 Range/Units 12:15 WBC (3.8-10.6) k/uL RBC (3.80-5.40) m/uL Hgb (11.4-16.0) gm/dL Hct (34.0-46.0) % MCV (80.0-100.0) fL MCH (25.0-35.0) pg MCHC (31.0-37.0) g/dL RDW (11.5-15.5) % Plt Count (150-450) k/uL Neutrophils % % Lymphocytes % % Monocytes % % Eosinophils % % Basophils % % Neutrophils # (1.3-7.7) k/uL Lymphocytes # (1.0-4.8) k/uL Monocytes # (0-1.0) k/uL Eosinophils # (0-0.7) k/uL Basophils # (0-0.2) k/uL Sodium (137-145) mmol/L Potassium (3.5-5.1) mmol/L Chloride (98-107) mmol/L Carbon Dioxide (22-30) mmol/L Anion Gap mmol/L BUN (7-17) mg/dL Creatinine (0.52-1.04) mg/dL Est GFR (CKD-EPI)AfAm (>60 ml/min/1.73 sqM) Est GFR (CKD-EPI)NonAf (>60 ml/min/1.73 sqM) Glucose (74-99) mg/dL Plasma Lactic Acid Vj 2.5 H* (0.7-2.0) mmol/L Calcium (8.4-10.2) mg/dL Total Bilirubin (0.2-1.3) mg/dL AST (14-36) U/L ALT (4-34) U/L Alkaline Phosphatase (38-126) U/L Total Protein (6.3-8.2) g/dL Albumin (3.5-5.0) g/dL Amylase (30-110) U/L Lipase (23-300) U/L Urine Color Urine Appearance (Clear) Urine pH (5.0-8.0) Ur Specific [place] (1.001-1.035) Urine Protein (Negative) Urine Glucose (UA) (Negative) Urine Ketones (Negative) Urine Blood (Negative) Urine Nitrite (Negative) Urine Bilirubin (Negative) Urine Urobilinogen (<2.0) mg/dL Ur Leukocyte Esterase (Negative) Disposition Clinical Impression: Nausea & vomiting, Dehydration, Transaminitis, Dilated bile duct Disposition: ADMITTED IP TO THIS [facility] Condition: Fair Referrals: Guadalupe Caceres MD [Primary Care Provider] - 1-2 days
[2020-05-16 12:33] LABS: Appearance,Urine Clear (Clear); Bilirubin,Urine Negative (Negative); Blood,Urine Negative (Negative); Color,Urine Yellow; Glucose,Urine (UA) Negative (Negative); Ketones,Urine Negative (Negative); Leukocyte Esterase,Urine Negative (Negative); Nitrite,Urine Negative (Negative); Protein,Urine Trace (Negative); Specific Gravity,Urine 1.016 (1.001-1.035); Urobilinogen,Urine <2.0 mg/dL (<2.0)
[2020-05-16 12:41] LABS: ALT 218 U/L (4-34); AST 296 U/L (14-36); African American GFR (CKD) >90 (>60 ml/min/1.73 sqM); Albumin 5.4 g/dL (3.5-5.0); Alkaline Phosphatase 230 U/L (38-126); Amylase 93 U/L (30-110); Anion Gap 17 mmol/L; Basophils % (A) 0 %; Blood Urea Nitrogen 12 mg/dL (7-17); Calcium 10.6 mg/dL (8.4-10.2); Carbon Dioxide 19 mmol/L (22-30); Chloride 99 mmol/L (98-107); Eosinophils # (A) 0.1 k/uL (0-0.7); Eosinophils % (A) 1 %; Glucose 123 mg/dL (74-99); HCT 42.8 % (34.0-46.0); Lymphocytes # (A) 1.9 k/uL (1.0-4.8); Lymphocytes % (A) 13 %; MCH 30.6 pg (25.0-35.0); MCHC 34.2 g/dL (31.0-37.0); MCV 89.6 fL (80.0-100.0); Mean Platelet Volume 7.5; Monocytes # (A) 0.4 k/uL (0-1.0); Monocytes % (A) 3 %; Neutrophils % (A) 83 %; Non-African American GFR(CKD) >90 (>60 ml/min/1.73 sqM); Platelet Count 433 k/uL (150-450); Potassium 3.5 mmol/L (3.5-5.1); RBC 4.78 m/uL (3.80-5.40); RDW 13.5 % (11.5-15.5); Sodium 135 mmol/L (137-145); Total Bilirubin 1.4 mg/dL (0.2-1.3); WBC 14.5 k/uL (3.8-10.6)
[2020-05-16 12:44] LABS: HGB 14.6 gm/dL (11.4-16.0)
[2020-05-16] MEDS ORDERED: HYDROmorphone 0.5 MG/0.5 ML SYRINGE IVP PRN (13:00)
[2020-05-16] MEDS ORDERED: ONDANSETRON 4 MG/2 ML VIAL IVP PRN (13:00)
[2020-05-16] MEDS ORDERED: NALOXONE 0.4 MG/ML 1 ML VIAL IV PRN (13:00)
[2020-05-16] MEDS ORDERED: LORazepam 2 MG/ML INJ IV STA (13:03)
[2020-05-16] MEDS: SODIUM CHLORIDE 0.9% 1,000 ML IV SCH ×2 (13:14→23:18)
--- NOTE | 2020-05-16 13:55 | P.HPIM ---
History of Present Illness This is a pleasant 43-soaked female with past medical history of hypertension, osteoarthritis, rheumatoid arthritis, migraine. She is a patient of Dr. Caceres. Also she follows up with Dr. Malcolm the urologist who removed her stent placed on 04/15 with first about 10 days later, also she sees a needle board repairer. She presents because of abdominal pain which she woke up with Friday morning at 2:00 am and one times through the weekend and when day 10 she comes today to the emergency room, she has significant nausea and vomiting, she cannot eat, but her bowel movement is normal. her abdominal pain is in the epigastric, followed sharp and burning about radiating to the back. Also patient denies fever. No chest pain or dyspnea she denies smoking, alcohol or illicit drugs She was recently discharged earlier this most from 04/16- For acute right pyelonephritis Secondary to obstructive uropathy and right sided hydronephrosis status post cystoscopy. At that time she also had elevated liver enzymes, and CAT scan showed some degree of antral and extrahepatic biliary duct dilatation and recommended MRCP but patient felt to follow-up on she could not get it done Vital signs stable and afebrile. She has leukocytosis of 14.5 K, sodium 35, glucose 123, elevated lactic acid 2.5, calcium 10.6, liver enzymes elevated with AST 296 and ALT 218. Urinalysis is no suspicious of infection. In the emergency room patient got normal saline about 2 L and continued with 100 mL per hour, Zofran and pain medication with Pepcid Patient says that she had MRI before because of her migraine and she is not claustrophobic and she denies any metal in her body and she has ureteral stents removed out recently Review of Systems CONSTITUTIONAL: No fever, no malaise, no fatigue. HEENT: No recent visual problems or hearing problems. Denied any sore throat. CARDIOVASCULAR: No orthopnea, PND, no palpitations, no syncope. PULMONARY: No shortness of breath, no cough, no hemoptysis. NEUROLOGICAL: No headaches, no weakness, no numbness. HEMATOLOGICAL: Denies any bleeding or petechiae. GENITOURINARY: Denies any burning micturition, frequency, or urgency. MUSCULOSKELETAL/RHEUMATOLOGICAL: Denies any joint pain, swelling, or any muscle pain. ENDOCRINE: Denies any polyuria or polydipsia. Past Medical History Past Medical History: Hypertension, Osteoarthritis (OA), Rheumatoid Arthritis (RA) Additional Past Medical History / Comment(s): migraines. Nathen Syndrome History of Any Multi-Drug Resistant Organisms: None Reported Past Surgical History: Cholecystectomy, Orthopedic Surgery, Tubal Ligation Additional Past Surgical History / Comment(s): carpel tunnel, knee - arthro, uretal stent plaement Past Anesthesia/Blood Transfusion Reactions: No Reported Reaction Past Psychological History: Anxiety Smoking Status: Never smoker Past Alcohol Use History: Occasional Past Drug Use History: None Reported Medications and Allergies Home Medications Medication Instructions Recorded Confirmed Type Etanercept [Enbrel] 50 mg SQ HOLT 11/02/18 05/16/20 History Multivitamins, Thera [Multivitamin 1 tab PO DAILY 04/16/20 05/16/20 History (formulary)] Sertraline [Zoloft] 100 mg PO DAILY@1600 04/16/20 05/16/20 History L.acidoph,Paracasei, B.lactis 1 cap PO DAILY 05/16/20 05/16/20 History [Probiotic] Lisinopril [Prinivil] 10 mg PO DAILY@1600 05/16/20 05/16/20 History Vitamin B Complex 1 cap PO DAILY 05/16/20 05/16/20 History Allergies Allergy/AdvReac Type Severity Reaction Status Date / Time No Known Allergies Allergy Verified 05/16/20 13:15 Physical Exam Vitals: Vital Signs Temp Pulse Resp BP Pulse Ox 05/16/20 11:50 99.3 F 80 16 162/107 100 Intake and Output 05/15/20 05/16/20 05/16/20 22:59 06:59 14:59 Other: Weight 88.451 kg GENERAL: The patient is alert and oriented x3, not in any acute distress. Well developed, well nourished. HEENT: Pupils are round and equally reacting to light. EOMI. No scleral icterus. No conjunctival pallor. Normocephalic, atraumatic. No pharyngeal erythema. No thyromegaly. CARDIOVASCULAR: S1 and S2 present. No murmurs, rubs, or gallops. PULMONARY: Chest is clear to auscultation, no wheezing or crackles. ABDOMEN: Soft, nontender, nondistended, normoactive bowel sounds. No palpable organomegaly. MUSCULOSKELETAL: No joint swelling or deformity. EXTREMITIES: No cyanosis, clubbing, or pedal edema. NEUROLOGICAL: Gross neurological examination did not reveal any focal deficits. SKIN: No rashes. No petechiae Results CBC & Chem 7: 05/16/20 12:15 05/16/20 12:15 Labs: Abnormal Lab Results - Last 24 Hours (Table) 05/16/20 05/16/20 05/16/20 Range/Units 12:15 12:15 12:15 WBC 14.5 H (3.8-10.6) k/uL Neutrophils # 12.0 H (1.3-7.7) k/uL Sodium 135 L (137-145) mmol/L Carbon Dioxide 19 L (22-30) mmol/L Glucose 123 H (74-99) mg/dL Plasma Lactic Acid Vj (0.7-2.0) mmol/L Calcium 10.6 H (8.4-10.2) mg/dL Total Bilirubin 1.4 H (0.2-1.3) mg/dL AST 296 H (14-36) U/L ALT 218 H (4-34) U/L Alkaline Phosphatase 230 H (38-126) U/L Total Protein 9.0 H (6.3-8.2) g/dL Albumin 5.4 H (3.5-5.0) g/dL Lipase 580 H (23-300) U/L Urine Protein Trace H (Negative) 05/16/20 Range/Units 12:15 WBC (3.8-10.6) k/uL Neutrophils # (1.3-7.7) k/uL Sodium (137-145) mmol/L Carbon Dioxide (22-30) mmol/L Glucose (74-99) mg/dL Plasma Lactic Acid Vj 2.5 H* (0.7-2.0) mmol/L Calcium (8.4-10.2) mg/dL Total Bilirubin (0.2-1.3) mg/dL AST (14-36) U/L ALT (4-34) U/L Alkaline Phosphatase (38-126) U/L Total Protein (6.3-8.2) g/dL Albumin (3.5-5.0) g/dL Lipase (23-300) U/L Urine Protein (Negative) Assessment and Plan Assessment: Possible gallstone pancreatitis Signs symptoms of gastroenteritis-like illness Dilated common bile duct with elevated liver enzymes, will need MRCP Elevated lipase Hypertension Osteoarthritis Kathy arthritis Migraine Plan: This is a pleasant 49 years old female who presents with gastroenteritis like picture with elevated liver enzymes and dilated biliary tract. Continue with IV hydration, consult GI team for possible MRCP. Consult surgery team Keep the patient nothing by mouth, continue with IV hydration and pain managem ent Labs and medication were reviewed.. Continue same treatment. Continue with symptomatic treatment. Resume home medication. Monitor lytes and vitals. DVT and GI prophylaxis. Further recommendations of the clinical course of the patient DVT prophylaxis: Subcutaneous heparin GI Prophylaxis: Pepcid Prognosis is guarded
[2020-05-16] MEDS: HYDROmorphone 1 MG/ML 1 ML SYRINGE IVP PRN ×3 (14:16→21:01)
--- NOTE | 2020-05-16 16:13 | US ---
EXAMINATION TYPE: US abdomen limited DATE OF EXAM: 05/16/2020 COMPARISON: NONE CLINICAL HISTORY: please assess for fluid pocket. All four quadrants scanned. No fluid visualized. IMPRESSION: Limited abdomen ultrasound. No evident ascites
[2020-05-16] MEDS ORDERED: METOCLOPRAMIDE 5 MG/ML 2 ML VIAL IVP STA (17:50)
[2020-05-16 20:54] VITALS: RESP 16
[2020-05-16] MEDS: HEPARIN SODIUM,PORCINE 5,000 UNIT/ML 1 ML VIAL SQ SCH (21:00)
[2020-05-16] MEDS: ONDANSETRON 4 MG/2 ML VIAL IVP PRN (21:00)
[2020-05-17] MEDS: HYDROmorphone 1 MG/ML 1 ML SYRINGE IVP PRN ×6 (01:51→21:54)
[2020-05-17] MEDS: ONDANSETRON 4 MG/2 ML VIAL IVP PRN ×3 (03:25→18:04)
[2020-05-17 06:19] LABS: Basophils # (A) 0.1 k/uL (0-0.2); Basophils % (A) 1 %; Eosinophils # (A) 0.1 k/uL (0-0.7); Eosinophils % (A) 1 %; HCT 33.8 % (34.0-46.0); HGB 12.1 gm/dL (11.4-16.0); Lymphocytes # (A) 2.7 k/uL (1.0-4.8); Lymphocytes % (A) 27 %; MCH 32.8 pg (25.0-35.0); MCHC 35.8 g/dL (31.0-37.0); MCV 91.6 fL (80.0-100.0); Mean Platelet Volume 7.9; Monocytes # (A) 0.5 k/uL (0-1.0); Monocytes % (A) 5 %; Neutrophils # (A) 6.6 k/uL (1.3-7.7); Neutrophils % (A) 65 %; Platelet Count 346 k/uL (150-450); RBC 3.69 m/uL (3.80-5.40); RDW 13.6 % (11.5-15.5); WBC 10.3 k/uL (3.8-10.6)
[2020-05-17 06:28] LABS: INR 1.1 (<1.2); Prothrombin Time 11.6 sec (9.0-12.0)
[2020-05-17 06:29] LABS: ALT 131 U/L (4-34); AST 72 U/L (14-36); African American GFR (CKD) >90 (>60 ml/min/1.73 sqM); Albumin 3.8 g/dL (3.5-5.0); Alkaline Phosphatase 151 U/L (38-126); Anion Gap 7 mmol/L; Blood Urea Nitrogen 16 mg/dL (7-17); Calcium 9.1 mg/dL (8.4-10.2); Carbon Dioxide 22 mmol/L (22-30); Chloride 110 mmol/L (98-107); Glucose 86 mg/dL (74-99); Non-African American GFR(CKD) >90 (>60 ml/min/1.73 sqM); Potassium 3.9 mmol/L (3.5-5.1); Sodium 139 mmol/L (137-145); Total Bilirubin 0.6 mg/dL (0.2-1.3); Total Protein 6.8 g/dL (6.3-8.2)
[2020-05-17] MEDS: HEPARIN SODIUM,PORCINE 5,000 UNIT/ML 1 ML VIAL SQ SCH ×2 (08:07→21:52)
[2020-05-17] MEDS: SODIUM CHLORIDE 0.9% 1,000 ML IV SCH ×3 (08:08→22:40)
--- NOTE | 2020-05-17 09:06 | P.GSCN ---
History of Present Illness Consult date: 05/17/20 Reason for Consult: Elevated liver function tests History of present illness: Is a 41-year-old female was admitted hospital complaints of abdominal pain. Patient noted to have elevated LFTs. Patient underwent previous laparoscopic cholecystectomy several years ago. Apparently scheduled for MRCP. Past Medical History Past Medical History: Hypertension, Osteoarthritis (OA), Rheumatoid Arthritis (RA) Additional Past Medical History / Comment(s): migraines. Nathen Syndrome ( affects vision) History of Any Multi-Drug Resistant Organisms: None Reported Past Surgical History: Cholecystectomy, Orthopedic Surgery, Tubal Ligation Additional Past Surgical History / Comment(s): carpel tunnel, knee - arthro, uretal stent plaement Past Anesthesia/Blood Transfusion Reactions: No Reported Reaction, Postoperative Nausea & Vomiting (PONV) Past Psychological History: Anxiety Smoking Status: Never smoker Past Alcohol Use History: Occasional Past Drug Use History: None Reported - Past Family History Mother Family Medical History: Coronary Artery Disease (CAD), Diabetes Mellitus, Hyperlipidemia, Osteoarthritis (OA), Respiratory Disorder, Rheumatoid Arthritis (RA), Thyroid Disorder Father Family Medical History: CVA/TIA, Hyperlipidemia, Thyroid Disorder Medications and Allergies Home Medications Medication Instructions Recorded Confirmed Type Etanercept [Enbrel] 50 mg SQ HOLT 11/02/18 05/16/20 History Multivitamins, Thera [Multivitamin 1 tab PO DAILY 04/16/20 05/16/20 History (formulary)] Sertraline [Zoloft] 100 mg PO DAILY@1600 04/16/20 05/16/20 History L.acidoph,Paracasei, B.lactis 1 cap PO DAILY 05/16/20 05/16/20 History [Probiotic] Lisinopril [Prinivil] 10 mg PO DAILY@1600 05/16/20 05/16/20 History Vitamin B Complex 1 cap PO DAILY 05/16/20 05/16/20 History Allergies Allergy/AdvReac Type Severity Reaction Status Date / Time No Known Allergies Allergy Verified 05/16/20 13:15 Surgical - Exam Vital Signs Temp Pulse Resp BP Pulse Ox 99.3 F 80 16 162/107 100 05/16/20 11:50 05/16/20 11:50 05/16/20 11:50 05/16/20 11:50 05/16/20 11:50 - General well developed, well nourished, no distress - Eyes PERRL - ENT normal pinna - Neck no masses - Respiratory normal expansion - Cardiovascular Rhythm: regular - Abdomen Abdomen: soft, non tender Results - Labs 05/17/20 05:39 05/17/20 05:39 Abnormal Lab Results - Last 24 Hours (Table) 05/16/20 05/16/20 05/16/20 Range/Units 12:15 12:15 12:15 WBC 14.5 H (3.8-10.6) k/uL RBC (3.80-5.40) m/uL Hct (34.0-46.0) % Neutrophils # 12.0 H (1.3-7.7) k/uL Sodium 135 L (137-145) mmol/L Chloride (98-107) mmol/L Carbon Dioxide 19 L (22-30) mmol/L Glucose 123 H (74-99) mg/dL Plasma Lactic Acid Vj (0.7-2.0) mmol/L Calcium 10.6 H (8.4-10.2) mg/dL Total Bilirubin 1.4 H (0.2-1.3) mg/dL AST 296 H (14-36) U/L ALT 218 H (4-34) U/L Alkaline Phosphatase 230 H (38-126) U/L Total Protein 9.0 H (6.3-8.2) g/dL Albumin 5.4 H (3.5-5.0) g/dL Lipase 580 H (23-300) U/L Urine Protein Trace H (Negative) 05/16/20 05/17/20 05/17/20 Range/Units 12:15 05:39 05:39 WBC (3.8-10.6) k/uL RBC 3.69 L (3.80-5.40) m/uL Hct 33.8 L (34.0-46.0) % Neutrophils # (1.3-7.7) k/uL Sodium (137-145) mmol/L Chloride 110 H (98-107) mmol/L Carbon Dioxide (22-30) mmol/L Glucose (74-99) mg/dL Plasma Lactic Acid Vj 2.5 H* (0.7-2.0) mmol/L Calcium (8.4-10.2) mg/dL Total Bilirubin (0.2-1.3) mg/dL AST 72 H (14-36) U/L ALT 131 H (4-34) U/L Alkaline Phosphatase 151 H (38-126) U/L Total Protein (6.3-8.2) g/dL Albumin (3.5-5.0) g/dL Lipase (23-300) U/L Urine Protein (Negative) Diabetes panel 05/16/20 05/17/20 Range/Units 12:15 05:39 Sodium 135 L 139 (137-145) mmol/L Potassium 3.5 3.9 (3.5-5.1) mmol/L Chloride 99 110 H (98-107) mmol/L Carbon Dioxide 19 L 22 (22-30) mmol/L BUN 12 16 (7-17) mg/dL Creatinine 0.69 0.69 (0.52-1.04) mg/dL Glucose 123 H 86 (74-99) mg/dL Calcium 10.6 H 9.1 (8.4-10.2) mg/dL AST 296 H 72 H (14-36) U/L ALT 218 H 131 H (4-34) U/L Alkaline Phosphatase 230 H 151 H (38-126) U/L Total Protein 9.0 H 6.8 (6.3-8.2) g/dL Albumin 5.4 H 3.8 (3.5-5.0) g/dL Calcium panel 05/16/20 05/17/20 Range/Units 12:15 05:39 Calcium 10.6 H 9.1 (8.4-10.2) mg/dL Albumin 5.4 H 3.8 (3.5-5.0) g/dL Pituitary panel 05/16/20 05/17/20 Range/Units 12:15 05:39 Sodium 135 L 139 (137-145) mmol/L Potassium 3.5 3.9 (3.5-5.1) mmol/L Chloride 99 110 H (98-107) mmol/L Carbon Dioxide 19 L 22 (22-30) mmol/L BUN 12 16 (7-17) mg/dL Creatinine 0.69 0.69 (0.52-1.04) mg/dL Glucose 123 H 86 (74-99) mg/dL Calcium 10.6 H 9.1 (8.4-10.2) mg/dL Adrenal panel 05/16/20 05/17/20 Range/Units 12:15 05:39 Sodium 135 L 139 (137-145) mmol/L Potassium 3.5 3.9 (3.5-5.1) mmol/L Chloride 99 110 H (98-107) mmol/L Carbon Dioxide 19 L 22 (22-30) mmol/L BUN 12 16 (7-17) mg/dL Creatinine 0.69 0.69 (0.52-1.04) mg/dL Glucose 123 H 86 (74-99) mg/dL Calcium 10.6 H 9.1 (8.4-10.2) mg/dL Total Bilirubin 1.4 H 0.6 (0.2-1.3) mg/dL AST 296 H 72 H (14-36) U/L ALT 218 H 131 H (4-34) U/L Alkaline Phosphatase 230 H 151 H (38-126) U/L Total Protein 9.0 H 6.8 (6.3-8.2) g/dL Albumin 5.4 H 3.8 (3.5-5.0) g/dL Assessment and Plan Assessment: Patient will undergo workup for retained common bile duct stone. We will follow with you.
[2020-05-17] MEDS ORDERED: MELATONIN 5 MG TABLET PO SCH (21:00)
--- NOTE | 2020-05-17 22:10 | P.CONS ---
History of Present Illness - Reason for Consult Consult date: 05/17/20 Elevated liver enzymes Requesting physician: Alexi E Sheet - Chief Complaint Abdominal pain - History of Present Illness 49-year-old female with a medical history significant for hypertension, osteoarthritis, rheumatoid arthritis, migraine disorder and prior cholecystecto my who presented to the hospital for evaluation of abdominal pain. She reports waking up with abdominal pain this past weekend. She describes the pain as constant, severe and achy across her abdomen. She reports that cholecystectomy was performed for a dilated gallbladder and that she did not have stones or attacks of symptomatic cholelithiasis at that time. She has no history of elevated liver enzymes or significant alcohol abuse. She did have some associated nausea with her symptoms but no vomiting. The patient was recently hospitalized with acute obstructive uropathy and is status post stent placement with the urology service. Computed tomography scan which demonstrated this at this time also noted some intra-and extrahepatic biliary dilation felt to be out of proportion for the postcholecystectomy state. On presentation patient was found to have WBC 10.3, hemoglobin 12.1, platelet count 346,000, lipase 580 with a negative testing for acute viral hepatitis. Liver enzymes were elevated on presentation and slightly improved today with bilirubin 1.4-0.6, alkaline phosphatase 230-151, AST 296-72 and ALT 218-131. MRCP has been ordered for further evaluation and is pending. Review of Systems REVIEW OF SYSTEMS: CONSTITUTIONAL: Denies any fevers, chills, weight change or fatigue. CARDIOVASCULAR: Denies any chest pain, palpitations high or low blood pressures RESPIRATORY: Denies any shortness of breath, hemoptysis or cough. GENITOURINARY: No dysuria or hematuria. MUSCULOSKELETAL: No weakness reported. SKIN: Denies any new rashes or lesions, jaundice or pallor. PSYCHIATRIC: Denies any depression or anxiety. NEUROLOGY: Denies headache, denies any new focal deficits. EARS/NOSE/THROAT: No recent hearing change, congestion, nasal discharge or sore throat. EYES: No pain in eyes, discharge or change in vision. GASTROINTESTINAL: As per HPI. Past Medical History Past Medical History: Hypertension, Osteoarthritis (OA), Rheumatoid Arthritis (RA) Additional Past Medical History / Comment(s): migraines. Nathen Syndrome (affects vision) History of Any Multi-Drug Resistant Organisms: None Reported Past Surgical History: Cholecystectomy, Orthopedic Surgery, Tubal Ligation Additional Past Surgical History / Comment(s): carpel tunnel, knee - arthro, uretal stent plaement Past Anesthesia/Blood Transfusion Reactions: No Reported Reaction, Postoperative Nausea & Vomiting (PONV) Past Psychological History: Anxiety Smoking Status: Never smoker Past Alcohol Use History: Occasional Past Drug Use History: None Reported - Past Family History Mother Family Medical History: Coronary Artery Disease (CAD), Diabetes Mellitus, Hyperlipidemia, Osteoarthritis (OA), Respiratory Disorder, Rheumatoid Arthritis (RA), Thyroid Disorder Father Family Medical History: CVA/TIA, Hyperlipidemia, Thyroid Disorder Medications and Allergies Home Medications Medication Instructions Recorded Confirmed Type Etanercept [Enbrel] 50 mg SQ HOLT 11/02/18 05/16/20 History Multivitamins, Thera [Multivitamin 1 tab PO DAILY 04/16/20 05/16/20 History (formulary)] Sertraline [Zoloft] 100 mg PO DAILY@1600 04/16/20 05/16/20 History L.acidoph,Paracasei, B.lactis 1 cap PO DAILY 05/16/20 05/16/20 History [Probiotic] Lisinopril [Prinivil] 10 mg PO DAILY@1600 05/16/20 05/16/20 History Vitamin B Complex 1 cap PO DAILY 05/16/20 05/16/20 History Allergies Allergy/AdvReac Type Severity Reaction Status Date / Time No Known Allergies Allergy Verified 05/16/20 13:15 Physical Exam Vitals: Vital Signs Temp Pulse Pulse Resp BP BP Pulse Ox 05/17/20 11:30 98.8 F 66 16 149/87 99 05/17/20 08:01 98.8 F 64 16 130/87 100 05/17/20 04:49 98.9 F 66 16 134/86 99 05/16/20 20:31 99.4 F 71 16 124/81 99 05/16/20 15:02 99 F 74 12 125/84 100 05/16/20 14:10 164/94 98 Intake and Output 05/16/20 05/17/20 05/17/20 22:59 06:59 14:59 Other: Voiding Method Toilet Toilet On physical examination, patient appears comfortable in no apparent distress. HEAD: Normocephalic, atraumatic. EYES: No scleral icterus. No conjunctival injection. MOUTH: No lesions, tongue midline. NECK: Trachea midline, no gross abnormalities. CHEST: Clear to auscultation with no wheezing or rhonchi appreciated. HEART: Regular rate and rhythm. ABDOMEN: Soft, mildly tender to palpation. Bowel sounds are positive. No organomegaly. No guarding or rigidity. EXTREMITIES: No pedal edema. SKIN: No rashes, no jaundice. NEUROLOGIC: Alert and oriented x3. No focal deficits. Results CBC & Chem 7: 05/17/20 05:39 05/17/20 05:39 Labs: Abnormal Lab Results - Last 24 Hours (Table) 05/17/20 05/17/20 Range/Units 05:39 05:39 RBC 3.69 L (3.80-5.40) m/uL Hct 33.8 L (34.0-46.0) % Chloride 110 H (98-107) mmol/L AST 72 H (14-36) U/L ALT 131 H (4-34) U/L Alkaline Phosphatase 151 H (38-126) U/L CT scan - abdomen: report reviewed (Computed tomography scan of the abdomen performed on last admission with findings of acute obstructive uropathy of the right kidney, at that time intra-and extrahepatic biliary dilation felt to be out of proportion to postcholecystectomy state was noted.) Assessment and Plan (1) Elevated liver enzymes Narrative/Plan: 49-year-old female with multiple medical comorbidities and recent admission for acute obstructive uropathy status post stent placement with the urology service who presented to the hospital with complaints of abdominal pain. Patient found to have elevation in liver enzymes in both a cholestatic and hepatocellular pattern on presentation which improved on repeat blood draw today with bilirubin 1.4-0.6, alkaline phosphatase 230-151, AST 296-72 and ALT 218-131. Computed tomography scan on last admission did note intra-and extrahepatic biliary dilation. Unclear if secondary to choledocholithiasis, drug-induced liver i njury in the setting of prior antibiotic therapy, a gallstone which is passed through the bile duct, intrinsic liver disease or other etiology. Current Visit: Yes Status: Acute Code(s): R74.8 - ABNORMAL LEVELS OF OTHER S SHELL ENZYMES SNOMED Code(s): 645486021 (2) Abdominal pain Current Visit: Yes Status: Acute Code(s): R10.9 - UNSPECIFIED ABDOMINAL PAIN SNOMED Code(s): 83689032 (3) History of cholecystectomy Current Visit: Yes Status: Acute Code(s): Z90.49 - ACQUIRED ABSENCE OF OTHER SPECIFIED PARTS OF DIGESTIVE TRACT SNOMED Code(s): 880179785 (4) Dilated bile duct Current Visit: Yes Status: Acute Code(s): K83.8 - OTHER SPECIFIED DISEASES OF BILIARY TRACT SNOMED Code(s): 751492503 Plan: Supportive care Okay for clear liquid diet Full liver serologies ordered MRCP ordered with results pending At this time the patient will tentatively board the patient for ERCP tomorrow, however if MRCP does not show findings of choledocholithiasis and liver enzymes remain normal will hold off The patient's case, the procedure including risks, benefits and possible complications have been discussed with her and her at length Thank you for allowing us to participate in the care of the patient, we will continue to follow
--- NOTE | 2020-05-17 23:28 | P.PN ---
Subjective This is a pleasant 43-soaked female with past medical history of hypertension, osteoarthritis, rheumatoid arthritis, migraine. She is a patient of Dr. Caceres. Also she follows up with Dr. Malcolm the urologist who removed her stent placed on 04/15 with first about 10 days later, also she sees a agricultural chemicals inspector. She presents because of abdominal pain which she woke up with Friday morning at 2:00 am and one times through the weekend and when day 10 she comes today to the emergency room, she has significant nausea and vomiting, she cannot eat, but her bowel movement is normal. her abdominal pain is in the epigastric, followed sharp and burning about radiating to the back. Also patient denies fever. No chest pain or dyspnea she denies smoking, alcohol or illicit drugs She was recently discharged earlier this most from 04/16- For acute right pyelonephritis Secondary to obstructive uropathy and right sided hydronephrosis status post cystoscopy. At that time she also had elevated liver enzymes, and CAT scan showed some degree of antral and extrahepatic biliary duct dilatation and recommended MRCP but patient felt to follow-up on she could not get it done Vital signs stable and afebrile. She has leukocytosis of 14.5 K, sodium 35, glucose 123, elevated lactic acid 2.5, calcium 10.6, liver enzymes elevated with AST 296 and ALT 218. Urinalysis is no suspicious of infection. In the emergency room patient got normal saline about 2 L and continued with 100 mL per hour, Zofran and pain medication with Pepcid Patient says that she had MRI before because of her migraine and she is not claustrophobic and she denies any metal in her body and she has ureteral stents removed out recently 05/17/2020 pt symptoms are improving , however she is still not eating much vitals and labs are noted MRCP is ordered and result is pending GI and surgery team input is appreciated , possible ERCP depending on MRCP results , labs and pt condition d/w staff and surgery teams Review of Systems CONSTITUTIONAL: No fever, no malaise, no fatigue. HEENT: No recent visual problems or hearing problems. Denied any sore throat. CARDIOVASCULAR: No orthopnea, PND, no palpitations, no syncope. PULMONARY: No shortness of breath, no cough, no hemoptysis. NEUROLOGICAL: No headaches, no weakness, no numbness. HEMATOLOGICAL: Denies any bleeding or petechiae. GENITOURINARY: Denies any burning micturition, frequency, or urgency. MUSCULOSKELETAL/RHEUMATOLOGICAL: Denies any joint pain, swelling, or any muscle pain. ENDOCRINE: Denies any polyuria or polydipsia. Objective - Vital Signs Vital signs: Vital Signs Temp 98.5 F 05/17/20 20:00 Pulse 62 05/17/20 20:00 Resp 16 05/17/20 20:00 BP 148/79 05/17/20 20:00 Pulse Ox 99 05/17/20 20:00 Intake & Output 05/17/20 05/17/20 05/18/20 06:59 18:59 06:59 Other: Voiding Method Toilet Toilet # Voids 1 - Exam GENERAL: The patient is alert and oriented x3, not in any acute distress. Well developed, well nourished. HEENT: Pupils are round and equally reacting to light. EOMI. No scleral icterus. No conjunctival pallor. Normocephalic, atraumatic. No pharyngeal erythema. No thyromegaly. CARDIOVASCULAR: S1 and S2 present. No murmurs, rubs, or gallops. PULMONARY: Chest is clear to auscultation, no wheezing or crackles. ABDOMEN: Soft, nontender, nondistended, normoactive bowel sounds. No palpable organomegaly. MUSCULOSKELETAL: No joint swelling or deformity. EXTREMITIES: No cyanosis, clubbing, or pedal edema. NEUROLOGICAL: Gross neurological examination did not reveal any focal deficits. SKIN: No rashes. No petechiae - Labs CBC & Chem 7: 05/17/20 05:39 05/17/20 05:39 Labs: Abnormal Lab Results - Last 24 Hours (Table) 05/17/20 05/17/20 Range/Units 05:39 05:39 RBC 3.69 L (3.80-5.40) m/uL Hct 33.8 L (34.0-46.0) % Chloride 110 H (98-107) mmol/L AST 72 H (14-36) U/L ALT 131 H (4-34) U/L Alkaline Phosphatase 151 H (38-126) U/L Assessment and Plan Assessment: Possible gallstone pancreatitis Signs symptoms of gastroenteritis-like illness Dilated common bile duct with elevated liver enzymes, will need MRCP Elevated lipase Hypertension Osteoarthritis Kathy arthritis Migraine Plan: This is a pleasant 49 years old female who presents with gastroenteritis like picture with elevated liver enzymes and dilated biliary tract. Continue with IV hydration, consult GI team, f/u MRCP. Consult surgery team Keep the patient nothing by mouth, continue with IV hydration and pain management Labs and medication were reviewed.. Continue same treatment. Continue with symptomatic treatment. Resume home medication. Monitor lytes and vitals. DVT and GI prophylaxis. Further recommendations of the clinical course of the patient DVT prophylaxis: Subcutaneous heparin GI Prophylaxis: Pepcid Prognosis is guarded
[2020-05-18] MEDS: SODIUM CHLORIDE 0.9% 1,000 ML IV SCH (03:26)
[2020-05-18] MEDS: HYDROmorphone 1 MG/ML 1 ML SYRINGE IVP PRN ×3 (03:29→10:47)
[2020-05-18 06:46] LABS: Basophils # (A) 0.1 k/uL (0-0.2); Basophils % (A) 1 %; Eosinophils # (A) 0.1 k/uL (0-0.7); Eosinophils % (A) 1 %; HCT 35.4 % (34.0-46.0); HGB 11.9 gm/dL (11.4-16.0); Lymphocytes # (A) 2.3 k/uL (1.0-4.8); Lymphocytes % (A) 26 %; MCH 30.6 pg (25.0-35.0); MCHC 33.5 g/dL (31.0-37.0); MCV 91.4 fL (80.0-100.0); Mean Platelet Volume 7.2; Monocytes # (A) 0.4 k/uL (0-1.0); Monocytes % (A) 4 %; Neutrophils # (A) 6.1 k/uL (1.3-7.7); Neutrophils % (A) 67 %; Platelet Count 304 k/uL (150-450); RBC 3.87 m/uL (3.80-5.40); RDW 13.1 % (11.5-15.5); WBC 9.2 k/uL (3.8-10.6)
[2020-05-18 06:50] LABS: INR 1.1 (<1.2); Prothrombin Time 11.5 sec (9.0-12.0)
[2020-05-18 06:55] LABS: ALT 104 U/L (4-34); AST 82 U/L (14-36); African American GFR (CKD) >90 (>60 ml/min/1.73 sqM); Albumin 3.7 g/dL (3.5-5.0); Alkaline Phosphatase 161 U/L (38-126); Anion Gap 6 mmol/L; Blood Urea Nitrogen 12 mg/dL (7-17); Calcium 8.9 mg/dL (8.4-10.2); Carbon Dioxide 24 mmol/L (22-30); Chloride 108 mmol/L (98-107); Glucose 84 mg/dL (74-99); Non-African American GFR(CKD) >90 (>60 ml/min/1.73 sqM); Potassium 3.6 mmol/L (3.5-5.1); Sodium 138 mmol/L (137-145); Total Bilirubin 0.8 mg/dL (0.2-1.3); Total Protein 6.6 g/dL (6.3-8.2)
[2020-05-18 08:38] VITALS: TEMP 98.7
--- NOTE | 2020-05-18 09:02 | MR ---
EXAMINATION TYPE: MR MRCP DATE OF EXAM: 05/17/2020 COMPARISON: None HISTORY: dilated billiary ducts , high lft, N/V with Abdomen Pain Standard multiplanar, multisequence MRI departmental protocol Multiplanar, multisequence images of the liver and biliary tree were acquired. Diffusion weighted sabrina ging was performed. FINDINGS: There is hepatic steatosis noted. No space-occupying hepatic lesions are identified. The li syl is not enlarged. There is intrahepatic biliary ductal dilatation. There is common bile duct dilatation measuring up to 1.4 cm. I do not see evidence for obstructing calculus or lesion. Correlate clinically. The gallblad meaghan is surgically absent. Pancreatic duct measures 2.3 mm. No pancreatic mass or inflammatory process identified. Spleen is of normal size and morphology. Adrenal glands and kidneys are unremarkable. No hydronephrosis or nephrolithiasis seen. Lower poles n ot imaged. Abdominal aorta is of normal caliber. IMPRESSION: 1. The patient is status post cholecystectomy with the biliary ductal dilatation of uncertain etiolog y. There is also intrahepatic biliary ductal prominence. [place] to be indicated consider ERCP. Nonobstr ucting calculus or lesion is seen.
--- NOTE | 2020-05-18 10:43 | P.PN ---
Progress Note - Text Progress Note Date: 05/18/20 Patient's remains stable. Her MRCP does not show any evidence of a retained common bile duct stone. The patient states she feels slightly better today. On exam vitals are stable. Abdomen soft. Await GI input. Patient may require ERCP
[2020-05-18] MEDS: HEPARIN SODIUM,PORCINE 5,000 UNIT/ML 1 ML VIAL SQ SCH (10:47)
[2020-05-18 11:45] LABS: % Iron Saturation 29.41 (12.00-45.00); Iron 90 ug/dL (50-170); Total Iron Binding Capacity 306 ug/dL (228-460)
[2020-05-18 11:48] LABS: Protein, Total 6.3 g/dL (6.2-8.2)
[2020-05-18 11:51] LABS: Alpha Fetoprotein, Tumor Mkr 5.1 ng/mL (0.0-7.9)
[2020-05-18 12:19] LABS: Hepatitis A Antibody IgM Non-Reactive (Non-Reactive); Hepatitis B Core IgM Non-Reactive (Non-Reactive); Hepatitis B Surface Antigen Non-Reactive (Non-Reactive); Hepatitis C IgG Antibody Non-Reactive (Non-Reactive)
--- NOTE | 2020-05-18 13:01 | P.PN ---
Subjective This is a pleasant 43-soaked female with past medical history of hypertension, osteoarthritis, rheumatoid arthritis, migraine. She is a patient of Dr. Caceres. Also she follows up with Dr. Malcolm the urologist who removed her stent placed on 04/15 with first about 10 days later, also she sees a senior cytogenetics laboratory director. She presents because of abdominal pain which she woke up with Friday morning at 2:00 am and one times through the weekend and when day 10 she comes today to the emergency room, she has significant nausea and vomiting, she cannot eat, but her bowel movement is normal. her abdominal pain is in the epigastric, followed sharp and burning about radiating to the back. Also patient denies fever. No chest pain or dyspnea she denies smoking, alcohol or illicit drugs She was recently discharged earlier this most from 04/16- For acute right pyelonephritis Secondary to obstructive uropathy and right sided hydronephrosis status post cystoscopy. At that time she also had elevated liver enzymes, and CAT scan showed some degree of antral and extrahepatic biliary duct dilatation and recommended MRCP but patient felt to follow-up on she could not get it done Vital signs stable and afebrile. She has leukocytosis of 14.5 K, sodium 35, glucose 123, elevated lactic acid 2.5, calcium 10.6, liver enzymes elevated with AST 296 and ALT 218. Urinalysis is no suspicious of infection. In the emergency room patient got normal saline about 2 L and continued with 100 mL per hour, Zofran and pain medication with Pepcid Patient says that she had MRI before because of her migraine and she is not claustrophobic and she denies any metal in her body and she has ureteral stents removed out recently 05/17/2020 pt symptoms are improving , however she is still not eating much vitals and labs are noted MRCP is ordered and result is pending GI and surgery team input is appreciated , possible ERCP depending on MRCP results , labs and pt condition d/w staff and surgery teams 05/18/2020 Patient still symptomatic with abdominal pain, she still nothing by mouth. She tried to eat something yesterday night and that did not go well with increased abdominal pain. This morning I talked to the patient and convinced her to go through EGD for GI team recommendation and she agrees since she has persistent symptoms MRCP: Did not show gallstones. Liver enzymes still slightly elevated. GI team on the case Review of Systems CONSTITUTIONAL: No fever, no malaise, no fatigue. HEENT: No recent visual problems or hearing problems. Denied any sore throat. CARDIOVASCULAR: No orthopnea, PND, no palpitations, no syncope. PULMONARY: No shortness of breath, no cough, no hemoptysis. NEUROLOGICAL: No headaches, no weakness, no numbness. HEMATOLOGICAL: Denies any bleeding or petechiae. GENITOURINARY: Denies any burning micturition, frequency, or urgency. MUSCULOSKELETAL/RHEUMATOLOGICAL: Denies any joint pain, swelling, or any muscle pain. ENDOCRINE: Denies any polyuria or polydipsia. Objective - Vital Signs Vital signs: Vital Signs Temp 98.7 F 05/18/20 08:00 Pulse 69 05/18/20 08:00 Resp 16 05/18/20 04:23 BP 161/94 05/18/20 08:00 Pulse Ox 98 05/18/20 08:00 Intake & Output 05/17/20 05/18/20 05/18/20 18:59 06:59 18:59 Intake Total 450 Balance 450 Intake: Oral 450 Other: Voiding Method Toilet Toilet Toilet # Voids 1 - Exam GENERAL: The patient is alert and oriented x3, not in any acute distress. Well developed, well nourished. HEENT: Pupils are round and equally reacting to light. EOMI. No scleral icterus. No conjunctival pallor. Normocephalic, atraumatic. No pharyngeal erythema. No thyromegaly. CARDIOVASCULAR: S1 and S2 present. No murmurs, rubs, or gallops. PULMONARY: Chest is clear to auscultation, no wheezing or crackles. ABDOMEN: Soft, nontender, nondistended, normoactive bowel sounds. No palpable organomegaly. MUSCULOSKELETAL: No joint swelling or deformity. EXTREMITIES: No cyanosis, clubbing, or pedal edema. NEUROLOGICAL: Gross neurological examination did not reveal any focal deficits. SKIN: No rashes. No petechiae - Labs CBC & Chem 7: 05/18/20 05:52 05/18/20 05:52 Labs: Abnormal Lab Results - Last 24 Hours (Table) 05/18/20 05/18/20 Range/Units 05:52 05:52 Chloride 108 H (98-107) mmol/L AST 82 H (14-36) U/L ALT 104 H (4-34) U/L Alkaline Phosphatase 161 H (38-126) U/L TIGRE Screen POSITIVE H (NEGATIVE) Assessment and Plan Assessment: Possible gallstone pancreatitis Signs symptoms of gastroenteritis-like illness Dilated common bile duct with elevated liver enzymes, will need MRCP Elevated lipase Hypertension Osteoarthritis Kathy arthritis Migraine Plan: This is a pleasant 49 years old female who presents with gastroenteritis like picture with elevated liver enzymes and dilated biliary tract. Continue with IV hydration, consult GI team, f/u MRCP. Consult surgery team Keep the patient nothing by mouth, continue with IV hydration and pain management Labs and medication were reviewed.. Continue same treatment. Continue with symptomatic treatment. Resume home medication. Monitor lytes and vitals. DVT and GI prophylaxis. Further recommendations of the clinical course of the patient DVT prophylaxis: Subcutaneous heparin GI Prophylaxis: Pepcid Prognosis is guarded
[2020-05-18] MEDS ORDERED: PROPOFOL 10 MG/ML 20 ML VIAL IV ONE (13:02)
[2020-05-18] MEDS ORDERED: LIDOCAINE 1% INJ 10MG/ML (20 ML MDV) ONE (13:02)
[2020-05-18] MEDS ORDERED: IV FLUID CONTINUATION 1,000 ML IV ONE (13:03)
--- NOTE | 2020-05-18 13:42 | P.PCN ---
Date of Procedure: 05/18/20 Description of Procedure: BRIEF HISTORY: 49-year-old female with a medical history significant for hypertension, osteoarthritis, rheumatoid arthritis, migraine disorder and prior cholecystectomy who presented to the hospital for evaluation of abdominal pain. She reports waking up with abdominal pain this past weekend. She describes the pain as constant, severe and achy across her abdomen. She reports that cholecystectomy was performed for a dilated gallbladder and that she did not have stones or attacks of symptomatic cholelithiasis at that time. She has no history of elevated liver enzymes or significant alcohol abuse. She did have some associated nausea with her symptoms but no vomiting. The patient was recently hospitalized with acute obstructive uropathy and is status post stent placement with the urology service. Computed tomography scan which demonstrated this at this time also noted some intra-and extrahepatic biliary dilation felt to be out of proportion for the postcholecystectomy state. On presentation patient was found to have WBC 10.3, hemoglobin 12.1, platelet count 346,000, lipase 580 with a negative testing for acute viral hepatitis. Liver enzymes were elevated on presentation and slightly improved today with bilirubin 1.4- 0.6, alkaline phosphatase 230-151, AST 296-72 and ALT 218-131. MRCP was negative for any choledocholithiasis with redemonstration of biliary dilation. PROCEDURE PERFORMED: Esophagogastroduodenoscopy with biopsy. PREOPERATIVE DIAGNOSIS: Epigastric abdominal pain. ESTIMATED BLOOD LOSS: Minimal. IV sedation per anesthesia. PROCEDURE: After informed consent was obtained, the patient was brought into the endoscopy unit. IV sedation was administered by Anesthesia under continuous monitoring. Initially the Olympus GIF-190 video endoscope was inserted into the mouth. Esophagus intubated without any difficulty. It was gradually advanced into the stomach and duodenum and carefully examined. The bulb and the second part of the duodenum appeared normal, except for some mild scattered erythema suggestive of mild duodenitis with biopsies taken. The scope at this time was withdrawn to the stomach, adequately insufflated with air, and upon careful examination, mucosa of the antrum, body, cardia and the fundus appeared normal, except for some moderate scattered erythema in the antrum and body and some superficial erosions suggestive of moderate gastritis with biopsies taken. The scope was then withdrawn into the esophagus. The GE junction was located at 38 cm from the incisors, with biopsies taken. The esophagus appeared normal. There were no erosions or ulcerations seen and the patient tolerated the procedure well. IMPRESSION: 1. Moderate gastritis antrum and body, biopsied. 2. Mild duodenitis, biopsied. 3. Biopsies of the GE junction. RECOMMENDATIONS: The findings of this examination were discussed with the patient. Okay to resume diet. Minimize NSAID use, with patient instructed to use Tylenol instead. Protonix 40 mg daily. Okay for discharge from GI standpoint, with patient instructed to follow-up in clinic in 1-2 weeks given elevation in liver enzymes in for follow-up of liver serologies ordered.
[2020-05-18] MEDS: ONDANSETRON 4 MG/2 ML VIAL IVP PRN (14:22)
[2020-05-18 17:21] VITALS: BP 154/82; PULSE 75
[2020-05-19 13:48] LABS: ANA Pattern See Footnote
[2020-05-24 09:03] LABS: Albumin 3.74 g/dL (3.80-4.90); Gamma Globulin 0.87 g/dL (0.70-1.50)
== END 2020-05-18 16:45 | disposition home or self-care (01) ==
LOC: EC 11:49 → 1SOBS 13:45
PROVIDERS: ADMIT Internal Medicine; ATTEND Internal Medicine
DX: K29.70 Gastritis, unspecified, without bleeding (principal); K29.80 Duodenitis without bleeding; K83.8 Other specified diseases of biliary tract; R74.8 Abnormal levels of other serum enzymes; R74.0 Nonspecific elevation of levels of transaminase and lactic acid dehydrogenase [LDH]; M19.90 Unspecified osteoarthritis, unspecified site; M06.9 Rheumatoid arthritis, unspecified; I10 Essential (primary) hypertension; G43.909 Migraine, unspecified, not intractable, without status migrainosus; R79.89 Other specified abnormal findings of blood chemistry; H50.812 Duane's syndrome, left eye; H50.811 Duane's syndrome, right eye; F41.9 Anxiety disorder, unspecified; Z03.818 Encounter for observation for suspected exposure to other biological agents ruled out; Z79.1 Long term (current) use of non-steroidal anti-inflammatories (NSAID); Z79.899 Other long term (current) drug therapy; Z90.49 Acquired absence of other specified parts of digestive tract; Z98.51 Tubal ligation status; Z87.440 Personal history of urinary (tract) infections; Z83.3 Family history of diabetes mellitus; Z82.49 Family history of ischemic heart disease and other diseases of the circulatory system; Z83.49 Family history of other endocrine, nutritional and metabolic diseases; Z82.61 Family history of arthritis; Z83.6 Family history of other diseases of the respiratory system; Z82.3 Family history of stroke
CPT/HCPCS: 96361 ×2; 96372 ×3; 96375 ×2; 96376 ×4; 96374; 99285; 36415; 86376; 88305; 80053 ×3; 80074; 82150; 83540; 83550; 83605; 83690 ×2; 85025 ×3; 85610 ×2; 81003; 81025; 83516 ×2; 82103; 82105; 84165; 86038; 86039; 76705; 74181; 43239; G0378 ×3; U0003; J2060; J1644 ×3; J2765; J2405 ×3; J2001; J1170 ×3; J2704

== ENCOUNTER → 2024-05-28 | Outpatient (CLI) | payer BC ==
--- NOTE | 2024-06-04 21:28 | MM ---
Reason for Exam: Screening (asymptomatic). Last mammogram was performed 7 year(s) and 9 month(s) ago. Patient History: Menarche at age 13. First Full-Term at age 19. Premenopausal. Maternal grandmother had breast cancer, age 50. Risk Values: Saida 5 year model risk: 0.8%. NCI Lifetime model risk: 6.3%. Prior Study Comparison: 06/03/2013 Bilateral Screening Mammogram, [facility]. 08/30/2016 Bilateral Screening Mammogram, [facility]. Tissue Density: The breasts are heterogeneously dense, which may obscure small masses. Findings: Analyzed By CAD. There is no suspicious group of microcalcifications or new suspicious mass in either breast. Overall Assessment: Negative, BI-RAD 1 Management: Screening Mammogram of both breasts in 1 year. . Patient should continue monthly self-breast exams. A clinical breast exam by your physician is recommended on an annual basis. This exam should not preclude additional follow-up of suspicious palpable abnormalities. Note on Saida scores and lifetime risk: 1. A Saida score greater than 3% is considered moderate risk. If this is the case, consider specialist referral to assess eligibility for a risk reducing agent. 2. If overall lifetime risk for the development of breast cancer is 20% or higher, the patient may qualify for future screening with alternating mammogram and breast MRI. Electronically signed and approved by: Mario Spear M.D. Radiologist
== END | disposition home or self-care (01) ==
LOC: RADMAMWWP 08:54
PROVIDERS: ATTEND Internal Medicine
DX: Z12.31 Encounter for screening mammogram for malignant neoplasm of breast (principal); R92.333 Mammographic heterogeneous density, bilateral breasts; Z80.3 Family history of malignant neoplasm of breast
CPT/HCPCS: 77063; 77067

== ENCOUNTER → 2025-02-02 | Outpatient (CLI) | payer BC ==
[2025-02-02 09:02] VITALS: BP 174/99; PULSE 99; RESP 16; TEMP 98.8
--- NOTE | 2025-02-02 09:54 | P.HPOB ---
History of Present Illness H&P Date: 02/02/25 Chief Complaint: The patient is here for her routine gynecologic exam. This is a 54-year-old G5, P5 with an LMP of 01/27/25. The patient is here to establish with this office. It has been greater than 10 years since her last pelvic exam. She is status post tubal ligation. She states her menstrual periods were regular every month about 6 months ago. For about 2 to 3 months they started becoming close are every 3 weeks. During the past 3 months, she has had fairly continuous spotting in between her period bleeds. She has had a rare hot flash, but nothing regular. She is otherwise without gynecologic complaints. Review of Systems The patient's weight has been stable over the last year. Patient states she did lose about 40 pounds 2 years ago and this was intentional. She denies respiratory, cardiac, or G.I. problems. Past Medical History Past Medical History: Hypertension, Osteoarthritis (OA), Rheumatoid Arthritis (RA) Additional Past Medical History / Comment(s): migraines. 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 History of Any Multi-Drug Resistant Organisms: None Reported Past Surgical History: Cholecystectomy, Orthopedic Surgery, Tubal Ligation Additional Past Surgical History / Comment(s): carpel tunnel, knee - arthroscopy, cystoscopic ureter stent plaement. EGD. Past Anesthesia/Blood Transfusion Reactions: No Reported Reaction, Postoperative Nausea & Vomiting (PONV) Past Psychological History: Anxiety, Depression Additional Psychological History / Comment(s): Depression improved after job change. Smoking Status: Never smoker Past Alcohol Use History: Occasional (1 drink every 2 months.) Past Drug Use History: None Reported Additional History: She has been since 2000. 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 - Past Family History Mother Family Medical History: Asthma, COPD, Coronary Artery Disease (CAD), Dementia, Diabetes Mellitus, Hyperlipidemia, Hypertension, Osteoarthritis (OA), Respiratory Disorder, Rheumatoid Arthritis (RA), Thyroid Disorder Additional Family Medical History / Comment(s): Sarcoidosis. . Father History Unknown: Yes Family Medical History: COPD, CVA/TIA, Hyperlipidemia, Hypertension, Thyroid Disorder Brother(s) Family Medical History: Hyperlipidemia, Hypertension Medications and Allergies Home Medications Medication Instructions Recorded Confirmed Type L.acidoph,Paracasei, B.lactis 1 cap PO DAILY 05/16/20 05/16/20 History [Probiotic] lisinopriL [Prinivil] 10 mg PO DAILY@1600 05/16/20 05/16/20 History Multivitamins, Thera [Multivitamin 1 tab PO DAILY 02/02/25 02/02/25 History (formulary)] Allergies Allergy/AdvReac Type Severity Reaction Status Date / Time No Known Allergies Allergy Verified 05/16/20 13:15 Exam Vital Signs Temp Pulse Resp BP Pulse Ox 02/02/25 08:54 98.8 F 99 16 174/99 99 Intake and Output 02/01/25 02/02/25 02/02/25 22:59 06:59 14:59 Other: Weight 76.204 kg Height 5 feet 7 inches, weight 168 pounds, BMI 26.3. This is a well-developed well-nourished white female who is alert and oriented times 3 in no acute distress. HEENT: Within normal limits. NECK: Supple without mass or thyromegaly. CHEST AND LUNGS: Clear to auscultation. HEART: Regular rate and rhythm. BREASTS: Are without mass or discharge. AXILLARY EXAM: Negative for adenopathy. BACK: Negative for CVA tenderness. ABDOMEN: Soft, nontender, without palpable masses. PELVIC EXAM: Normal external genitalia. Cervix is multiparous with an ectropion. Vagina reveals a small amount of thinner menstrual type blood. There are no vaginal lesions.. There is no evidence of prolapse. The uterus is midposition, nongravid size and nontender. There is a palpable right adnexal mass approximately 2.5 cm posterior to the uterus. This is mobile and nontender. There are no other palpable masses. RECTAL EXAM: Rectovaginal exam perms a 2.5 cm posterior right adnexal mass. T his does not represent rectal stool, but may represent colonic stool. There are no rectal masses. Rectal exam is negative for fecal occult blood. EXTREMITIES: Nontender. IMPRESSION: 1. 54-year-old perimenopausal female with recent menstrual irregularity and intermenstrual bleeding. This most likely represents dysfunctional uterine bleeding. Differential diagnosis will include anovulatory bleeding, endometrial neoplasia, and cervical neoplasia. 2. Palpable right pelvic mass measuring approximate 2.5 cm. Differential diagnosis will include palpable right ovary, colonic stool, ovarian cyst, or other ovarian neoplasia. 3. Elevated blood pressure with history of chronic hypertension. PLAN: 1. Pap smear cotest was performed. 2. Self breast awareness was discussed with the patient. We have also discussed symptoms associated with inflammatory breast cancer. 3. Screening mammogram will be due in May 2025 and the order slip was given to the patient for this. 4. Pelvic ultrasound will be scheduled to further evaluate the pelvic mass as well as evaluate for abnormal uterine bleeding. The order slip was given to the patient for this. 5. The patient will be scheduled for an endometrial biopsy. 6. We have discussed her elevated blood pressure. She states she will check her blood pressure herself on a regular basis and follow-up with her PCP for blood pressure elevations 7. Colorectal cancer screening has been done with Cologuard testing through her PCP. 8. As above. She was advised to return in one year for her annual well woman exam and as needed
== END ==
LOC: WWCWWP 08:27
PROVIDERS: ATTEND Obstetrics & Gynecology
DX: Z01.419 Encounter for gynecological examination (general) (routine) without abnormal findings (principal); N95.9 Unspecified menopausal and perimenopausal disorder; N92.1 Excessive and frequent menstruation with irregular cycle; I10 Essential (primary) hypertension

== ENCOUNTER → 2025-02-16 | Outpatient (CLI) | payer BC ==
--- NOTE | 2025-02-16 15:01 | US ---
EXAMINATION TYPE: US pelvis complete transvag DATE OF EXAM: 02/16/2025 COMPARISON: NONE CLINICAL INDICATION: Female, 54 years old with history of N93.8 OTHER SPECIFIED ABNORMAL UTERINE AND VAGINAL; irregular cycles hat have increased in frequency, , right sided fullness on physical exa m TECHNIQUE: TA/TV. Transabdominal grayscale sonographic images of the pelvis were acquired. Transvaginal sonographic im ages were medically necessary to better assess the following anatomy: UT and ovaries Doppler imaging: Not performed. FINDINGS: Date of LMP: 01-27-2025 EXAM MEASUREMENTS: Uterus: 8.8 x 4.3 x 5.2 cm Endometrial Stripe: 3.0 cm Right Ovary: 2.8 x 2.1 x 2.1cm Left Ovary: Not seen 1. Uterus: Anteverted and otherwise wnl 2. Endometrium: thickened with vascular, oval heterogeneous hypoechoic area noted along the anterior aspect at the level of the uterine body measuring 2.2 x 1.3 cm. 3. Right Ovary: 2.0 x 1.4 x 1.7cm complex cyst with internal reticulations 4. Left Ovary: not seen transabdominally or transvaginally 5. Bilateral Adnexa: wnl 6. Posterior cul-de-sac: wnl IMPRESSION: 1. Endometrial stripe appears thickened, possibly up to 3 cm. In addition, there is a 2.2 x 1.3 cm ro unded hypoechoic structure at the anterior uterine body involving or just adjacent to the endometrium . A focal fibroid with mass effect onto the endometrium versus a submucosal fibroid versus other endo metrial lesion are in the differential. Consider further characterization with female pelvic MRI. 2. A 2.0 cm complex cyst of the right ovary, suspect a hemorrhagic cyst. Follow-up ultrasound in 6-8 weeks to assess for involution. 3. Unable to visualize the left ovary. [facility], , 02/16/2025 2:58 PM
== END | disposition home or self-care (01) ==
LOC: RADUSWWP 09:50
PROVIDERS: ATTEND Obstetrics & Gynecology
DX: N83.291 Other ovarian cyst, right side (principal); N93.8 Other specified abnormal uterine and vaginal bleeding; R68.89 Other general symptoms and signs
CPT/HCPCS: 76830; 76856

== ENCOUNTER → 2025-02-16 | Day surgery (SDC) | payer BC ==
[2025-02-16 11:53] VITALS: TEMP 98.5
[2025-02-16 12:32] VITALS: BP 139/98; PULSE 89; RESP 17
--- NOTE | 2025-02-16 12:40 | P.PCN ---
Date of Procedure: 02/16/25 Preoperative Diagnosis: Dysfunctional uterine bleeding. Postoperative Diagnosis: Dysfunctional uterine bleeding. Procedure(s) Performed: Endometrial biopsy. Anesthesia: none Surgeon: Glen Tang Estimated Blood Loss (ml): 3 Pathology: other (Endometrial tissue) Condition: stable Disposition: same day Indications for Procedure: This was a 54-year-old female with a 6-month history of menstrual irregularity and a 3-month history of continuous intermenstrual spotting. Her LMP was 01/28/2024 and did stop on 02/04/2024. She has not had bleeding since 02/04/2024. Operative Findings: The uterus sounded to 8 cm. Moderate tissue and blood was obtained from the uterus. The uterus is nongravid size and nontender. There are no palpable adnexal masses or tenderness. Description of Procedure: Prior to the procedure we discussed the reasons for doing the procedure and possible findings with the procedure. We have discussed possible risks and complications including bleeding, infection, uterine perforation, and damage to surrounding structures. All questions were answered. The patient was notified that her Pap smear was negative, but did show endometrial cells. The HPV testing is pending. Preprocedure vital signs: Blood pressure 154/84, height 5 feet 7-1/2 inches, weight 168 pounds, BMI 26.3, temperature 98.5, pulse 85, pulse oximeter 99%. The patient was placed in the lithotomy position. Bimanual examination revealed a mid position uterus that was nongravid size and nontender. There are no palpable adnexal masses or tenderness. A speculum was inserted into the vagina and the cervix and vagina were prepped with Betadine solution. A 3 mm endometrial biopsy instrument was placed to the fundus without difficulty. The uterus measured 8 cm. Negative pressure was applied and a [id number] rotating motion was used. A moderate amount of tissue was obtained and the instrument was filled. This was repeated and again a moderate amount of tissue and blood was obtained and the instrument filled to 90%. Both sampling specimens were sent for pathological examination. The patient tolerated the procedure well. Estimate blood loss was 3 cc. Initial post procedure blood pressure was 190/120. This was repeated after the patient was dressed and the blood pressure was 139/98. Pulse 85 pulse oximeter 98%. The patient was discharged home in stable condition. Patient was instructed to call if she has heavy bleeding, fever, unusual pain, or problems. The patient will be started on Provera 10 mg 1 daily on days 2 through 13 of the month. The patient will keep a menstrual calendar. She will take this medication for the next 3 months. She will call if problems. Electronic prescription will be sent to [facility] pharmacy in [place]. We will await the pathology results. She will regularly check her blood pressure at home and call her PCP if she continues to have blood pressure elevations.
--- NOTE | 2025-02-22 11:45 | P.PN ---
Progress Note - Text Progress Note Date: 02/22/25 OUTPATIENT FOLLOW-UP NOTE TEST(S)/RESULTS: Test results from 02/16/25 include an endometrial biopsy showing proliferative to early secretory endometrium. A pelvic ultrasound done on that day shows a heterogeneous hypoechoic area along the anterior aspect of the uterine body measuring 2.2 x 1.3 cm as well as a right ovarian complex cyst measuring 2.0 cm. The endometrial stripe measured 3.0 cm. The uterine hypoechoic area was felt to possibly represent a submucosal uterine fibroid or other endometrial lesion. The Pap smear cotest on 02/02/2025 was negative, with negative Pap smear and negative high-risk HPV testing. METHOD OF NOTIFICATION: The patient was notified by phone on 02/22/2025. PATIENT COMMENTS: The patient states she had a small amount of bleeding for 2 days following the endometrial biopsy, but has not been bleeding since then. She is taking the Provera as directed. DIAGNOSIS: Negative Pap smear cotest. Benign endometrial biopsy. Pelvic ultrasound showing a small complex right ovarian cyst measuring 2.0 cm and a heterogeneous hypoechoic area probably representing a submucosal fibroid. Dysfunctional uterine bleeding. DISCUSSION: We will continue with our plan for cyclic Provera 10 mg days 2 through 13 of the month for the next 3 months. She will keep a menstrual calendar. If she stops having intermenstrual bleeding, will we will continue to have her keep a menstrual calendar without medication. If she continues to have intermenstrual bleeding, she will be referred for hysteroscopy and D&C. Will plan on repeating the pelvic ultrasound in approximately 2 months, as recommended. The order slip will be mailed to the patient for this. PLAN: As above. If menstrual periods are regular and predictable following the cyclic Provera, she will return in 1 year. She will also return as needed.
== END ==
LOC: WWCWWP 09:53
PROVIDERS: ATTEND Obstetrics & Gynecology
DX: N93.8 Other specified abnormal uterine and vaginal bleeding (principal)
CPT/HCPCS: 88305

== ENCOUNTER → 2025-05-30 | Outpatient (CLI) | payer BC ==
[2025-05-30 16:11] LABS: Basophils # (A) 0.07 X 10*3/uL (0.00-0.10); Basophils % (A) 0.9 %; Eosinophils # (A) 0.40 X 10*3/uL (0.04-0.35); Eosinophils % (A) 5.2 %; HCT 39.5 % (37.2-46.3); HGB 12.8 g/dL (12.0-15.0); Immature Grans, Automated 0.10 %; Lymphocytes # (A) 1.94 X 10*3/uL (0.90-5.00); Lymphocytes % (A) 25.0 %; MCH 30.4 pg (27.0-32.0); MCHC 32.4 g/dL (32.0-37.0); MCV 93.8 FL (80.0-97.0); Monocytes # (A) 0.42 X 10*3/uL (0.20-1.00); Monocytes % (A) 5.4 %; NRBC Per 100 WBC 0 X 10*3/uL (0.00-0.01); Neutrophils # (A) 4.91 X 10*3/uL (1.80-7.70); Neutrophils % (A) 63.4 %; Platelet Count 270 X 10*3/uL (140-440); RBC 4.21 X 10*6/uL (4.10-5.20); RDW 13.8 % (11.5-14.5); WBC 7.75 X 10*3/uL (4.50-10.00)
[2025-05-30 16:15] LABS: Anion Gap 11.80 mmol/L (4.00-12.00); BUN/Creat Ratio 20.60 Ratio (12.00-20.00); Blood Urea Nitrogen 20.6 mg/dL (9.0-27.0); Carbon Dioxide 24.2 mmol/L (21.6-31.8); Chloride 106 mmol/L (96-109); Cholesterol 232.00 mg/dL (0.00-200.00); Glucose 88 mg/dL (70-110); HDL Cholesterol 77.70 mg/dL (40.00-60.00); LDL Cholesterol,Calculated 135.9 mg/dL (0.0-131.0); Potassium 4.5 mmol/L (3.5-5.5); Sodium 142 mmol/L (135-145); Triglycerides 92.00 mg/dL (0.00-149.00); VLDL Calculation 18.40 mg/dL (5.00-40.00)
[2025-05-30 16:16] LABS: ALT 26 U/L (8-44); AST 21 U/L (13-35); Albumin 4.5 g/dL (3.8-4.9); Albumin/Globulin Ratio 1.96 Ratio (1.60-3.17); Alkaline Phosphatase 47 U/L (41-126); Calcium 9.6 mg/dL (8.7-10.3); Globulin 2.3 g/dL (1.6-3.3); Total Protein 6.8 g/dL (6.2-8.2)
== END | disposition home or self-care (01) ==
LOC: LABWHC1 08:35
PROVIDERS: ATTEND Internal Medicine
DX: Z00.01 Encounter for general adult medical examination with abnormal findings (principal); Z13.220 Encounter for screening for lipoid disorders; E55.9 Vitamin D deficiency, unspecified; R53.83 Other fatigue
CPT/HCPCS: 36415; 80053; 80061; 82306; 84443; 85025